=== PATIENT | female | born 1940 | race Hispanic/Latino ===

== ENCOUNTER 2021-05-25 19:30 | Emergency (ER) | payer MEDICARE, OTHER ==
[~2021-05-25] VITALS: Ht 165.1 cm; Wt 56.2 kg
[2021-05-25] MEDS ORDERED: LIDOCAINE HCL MPF 1% 5ML VIAL ONE (21:28)
[2021-05-25] MEDS ORDERED: CEPHALEXIN 500 MG CAPSULE PO ONE (21:30)
[2021-05-25] MEDS ORDERED: TETANUS/DIPHTHERIA TOXOID [ADULT] 0.5 ML VIAL IM ONE (21:30)
[2021-05-25] MEDS ORDERED: ONDANSETRON ODT 4MG TAB SL ONE (21:30)
[2021-05-25] MEDS ORDERED: HYDROCODONE/ACETAMINOPHEN 5/325 MG TAB PO ONE (21:30)
[2021-05-25] MEDS ORDERED: LIDOCAINE HCL 1% 20 ML VIAL INJ ONE (21:30)
[2021-05-25] MEDS ORDERED: NEOMY SULF/BACITRA/POLYMYXIN B 1 EACH PACKET TP ONE ×2 (22:56→23:00)
[2021-05-25] MEDS ORDERED: ONDA4TAB10 PO (22:59)
[2021-05-25] MEDS ORDERED: CEPH250C2 PO (22:59)
[2021-05-25 23:05] VITALS: BP 160/71
== END 2021-05-25 23:21 | disposition home or self-care (01) ==
LOC: EDH 19:30
DX: S02.2XXA Fracture of nasal bones, initial encounter for closed fracture (principal); S01.21XA Laceration without foreign body of nose, initial encounter; S80.01XA Contusion of right knee, initial encounter; S60.221A Contusion of right hand, initial encounter; E11.9 Type 2 diabetes mellitus without complications; E78.00 Pure hypercholesterolemia, unspecified; W18.39XA Other fall on same level, initial encounter; Y93.89 Activity, other specified; Y92.89 Other specified places as the place of occurrence of the external cause; Y99.8 Other external cause status
CPT/HCPCS: 12013; 70450; 70486; 72125; 90471; 90714; 99284; J3490

== ENCOUNTER → 2023-04-25 | Outpatient (CLI) | payer MEDICARE ==
[~2023-04-25] MED LIST: CEPH250C2 PO; ONDA4TAB10 PO
== END | disposition home or self-care (01) ==
LOC: RAH 13:50
PROVIDERS: ATTEND Family Medicine
DX: I08.2 Rheumatic disorders of both aortic and tricuspid valves (principal); R01.1 Cardiac murmur, unspecified
CPT/HCPCS: 93306

== ENCOUNTER 2024-03-17 16:27 | Inpatient (IN) | payer MEDICARE ==
[~2024-03-17] VITALS: Ht 165.1 cm; Wt 48.0 kg
[~2024-03-17 16:27] MED LIST changes: +ONDA-243 PO; -ONDA4TAB10 PO
--- NOTE | 2024-03-17 16:48 | EKG ---
[facility] Test Date: 2024-03-17 Test Time: 16:41:16 Pat Name: BRAVO CARR Department: ED Room: Gender: F Crew Trainer: [id number] : [id number] Requested By: PAUL BATES Order Number: [id number] Reading MD: Juan Pearl Measurements Intervals [place] Rate: 93 P: 38 ME: 143 QRS: -32 QRSD: 76 T: 132 QT: 344 QTc: 429 Interpretive Statements Sinus rhythm Inferior infarct, old Anterior infarct, old Nonspecific T abnormalities, lateral leads No previous ECG available for comparison Electronically Signed On 03-17-2024 20:02:55 CHIEF LOAD DISPATCHER by Juan Pearl Please click the below link to view image of tracing.
[2024-03-17 17:02] LABS: BASOPHILS # (AUTO) 0.02 K/uL (0.00-0.20); BASOPHILS % (AUTO) 0.3 % (0.0-5.0); EOSINOPHILS # (AUTO) 0.03 K/uL (0.00-0.70); EOSINOPHILS % (AUTO) 0.5 % (0.0-8.0); HEMATOCRIT 38.1 % (36-48); IMMATURE GRANULOCYTE ABSOLUTE 0.02 K/uL (0-1); LYMPHOCYTES # (AUTO) 1.9 K/uL (1.0-4.8); MEAN CORPUSCULAR HEMOGLOBIN 35.8 pg (27.0-33.0); MEAN CORPUSCULAR HGB CONC 36.2 g/dL (32.0-36.0); MONOCYTES # (AUTO) 0.6 K/uL (0.1-1.0); MONOCYTES % (AUTO) 9.9 % (3.0-13.0); NEUTROPHILS # (AUTO) 3.5 K/uL (1.8-7.7); PLATELET COUNT (AUTO) 308 K/uL (130-400); RED BLOOD CELL COUNT(AUTO) 3.85 MIL/uL (4.00-5.50); RED CELL DISTRIBUTION WIDTH 12.1 % (11.0-15.5)
--- NOTE | 2024-03-17 17:03 | HMCIMG ---
PORTABLE CHEST RADIOGRAPH INDICATION: sepsis COMPARISON: 12/26/2009 FINDINGS: Heart size is normal. The pulmonary vascularity and annette appear normal. No abnormal pulmonary parenchymal opacity or consolidation identified. No significant pleural effusion noted. No pneumothorax detected. IMPRESSION: No radiographic evidence for any acute cardiopulmonary process.
[2024-03-17 17:36] LABS: CARBON DIOXIDE 27 mmol/L (21-32); CHLORIDE 94 mmol/L (101-111); CREATINE KINASE, TOTAL 43 U/L (21-232); CREATININE 0.9 mg/dL (0.5-1.0); GLOMERULAR FILTR. RATE CALC 63 mL/min (>90); POTASSIUM 3.9 mmol/L (3.5-5.1); SODIUM SERUM 129 mmol/L (136-145); UREA NITROGEN, BLOOD 18 mg/dL (7-18)
[2024-03-17 17:45] LABS: ADD UA MICROSCOPIC YES; APPEARANCE,URINE CLEAR (CLEAR); BILIRUBIN,URINE NEGATIVE (NEGATIVE); COLOR,URINE LIGHT-YELLOW (YELLOW); GLUCOSE, URINE (UA) >=1000 mg/dL (NEGATIVE); KETONES,URINE 10 mg/dL (NEGATIVE); LEUKOCYTE ESTERASE ,URINE 25 Leu/uL (NEGATIVE); NITRATE,URINE NEGATIVE (NEGATIVE); OCCULT BLOOD,URINE NEGATIVE (NEGATIVE); PROTEIN,URINE 30 mg/dL (NEGATIVE); UROBILINOGEN,URINE 0.2 mg/dL (0.2-1.0)
[2024-03-17 17:47] LABS: BACTERIA,URINE RARE /HPF (None Seen); MUCUS,URINE RARE LPF (None Seen); RBC,URINE 0-1 /HPF (0-1); SQUAMOUS EPITHELIAL CELL,UR FEW /HPF (0-2)
[2024-03-17 17:51] LABS: GLUCOSE,RANDOM 476 mg/dL (70-105)
--- NOTE | 2024-03-17 18:47 | ERN ---
General Chief Complaint: FOOT INJURY/PAIN Stated Complaint: SENT BY DR Mathew Seen by MD: 16:28 History of Present Illness Initial Comments 83-year-old female sent in by her PCP for evaluation of a chronic left ankle injury. She injured it about five months ago. It was not been healing, and it was now has surrounding erythema and swelling. Concern for infection. Patient denies any symptoms other than some pain to the area. PCP Kaylie Chaparro Allergies: Coded Allergies: No Known Allergies (Unverified Allergy, Unknown, 05/25/21) Home Meds Active Scripts Ondansetron (Ondansetron Odt) 4 Mg Tab.rapdis, 4 MG PO Q6HPRN, #20 TAB 0 Refills Prov:ALEXANDER BRADSHAW MD 05/25/21 Cephalexin (Keflex 250Mg Caps) 250 Mg Capsule, 250 MG PO TID for 10 Days, #30 CAP 0 Refills Prov:ALEXANDER BRADSHAW MD 05/25/21 Past Medical History Past Medical History: Diabetes-Type II, High Cholesterol Past Surgical History: None ROS Dictation CONSTITUTIONAL: No chills, no fever, no weakness, no diaphoresis, no malaise. HEAD/FACE: No signs of trauma. EENT: No eye pain, no blurred vision, no tearing, no double vision, no ear pain, no ear discharge, no nose pain, no nasal congestion, no throat pain, no throat swelling, no mouth pain. RESPIRATORY: No cough, no orthopnea, no SOB, no stridor, no wheezing. CARDIOVASCULAR: No chest pain, no edema, no palpitations, no syncope. GASTROINTESTINAL/ABDOMINAL: No abdominal pain, no constipation, no diarrhea, no nausea, no vomiting. GENITOURINARY: No abnormal discharge, no dysuria, no frequent urination, no hematuria. No complaints of pain in the genitals. MUSCULOSKELETAL: Left-sided foot infection INTEGUMENTARY: No change in color, no change in hair/nails, no dryness, no lesion, no lumps, no rash. NEUROLOGICAL/PSYCH: No anxiety, not depressed, no emotional problem, no headache, no numbness, no pre-existing deficit, no history of seizures, no tremors, no weakness. HEMATOLOGIC/LYMPHATIC: Not anemic, no history of blood clots, no apparent bleeding, no bruising, glands not swollen. All Systems Negative, Except as Noted. Physical Exam Physical Exam Dictation VITAL SIGNS: Reviewed. GENERAL APPEARANCE: Alert, oriented x3, no acute distress HEAD AND FACE: Non-traumatic. EYES: PERRL, pink conjunctivas, eyelid no trauma, anterior chamber clear. EARS: Pinnas intact and no signs of trauma or erythema. Ear canals clear and no discharge. TMs no erythema. NOSE: No discharge, no bleeding. OROPHARYNX: Mouth normal, teeth no caries, tongue pink. Pharynx clear, no erythema. Tonsils no exudates, no abscesses noted. Mucous membrane moist. NECK: Supple, non-tender, no thyromegaly, no masses, no JVD, no bruits. BREAST: Deferred. CHEST: No tenderness, no crepitus, no paradoxical movement, no retractions. LUNGS: Clear, well-ventilated, symmetric, no rales, no wheezing, no rhonchi, no stridor, good breath sounds bilaterally. HEART: Regular rate, regular rhythm, no murmur, no gallops. VASCULAR: No peripheral edema. ABDOMEN: Soft, positive bowel sounds, nondistended, no guarding, nontender, no rebound, no masses no hepatomegaly, no splenomegaly, no Sena's sign, no hernias. RECTAL: Deferred. GENITAL: Deferred. NEUROLOGICAL: Normal speech, gross motor function intact, gross sensory function intact. MUSCULOSKELETAL: Neck nontender, full range of motion, back nontender, full range of motion. EXTREMITIES: Nontender, full range of motion. SKIN: Color pink, dry, no turgor, no rash, no lacerations, no abrasions, no contusions. LYMPHATICS: Deferred. Results Laboratory and Microbiology Lab and Micro Result Laboratory Tests Test 03/17/24 16:51 03/17/24 17:28 White Blood Count 6.0 K/uL (4.8-10.8) Red Blood Count 3.85 MIL/uL (4.00-5.50) L Hemoglobin 13.8 g/dL (12.0-16.0) Hematocrit 38.1 % (36-48) Mean Corpuscular Volume 99.0 fL (79-99) Mean Corpuscular Hemoglobin 35.8 pg (27.0-33.0) H Mean Corpuscular Hemoglobin Concent 36.2 g/dL (32.0-36.0) H Red Cell Distribution Width 12.1 % (11.0-15.5) Platelet Count 308 K/uL (130-400) Mean Platelet Volume 9.2 fL (7.5-10.5) Immature Granulocyte % (Auto) 0.3 % (0-1) Neutrophils (%) (Auto) 58.0 % (40.0-77.0) Lymphocytes (%) (Auto) 31.0 % (21.0-51.0) Monocytes (%) (Auto) 9.9 % (3.0-13.0) Eosinophils (%) (Auto) 0.5 % (0.0-8.0) Basophils (%) (Auto) 0.3 % (0.0-5.0) Neutrophils # (Auto) 3.5 K/uL (1.8-7.7) Lymphocytes # (Auto) 1.9 K/uL (1.0-4.8) Monocytes # (Auto) 0.6 K/uL (0.1-1.0) Eosinophils # (Auto) 0.03 K/uL (0.00-0.70) Basophils # (Auto) 0.02 K/uL (0.00-0.20) Absolute Immature Granulocyte (auto 0.02 K/uL (0-1) Nucleated Red Blood Cells 0.0 % (0.0-0.19) Red Blood Cell Morphology ANISO 1+ Sodium Level 129 mmol/L (136-145) L Potassium Level 3.9 mmol/L (3.5-5.1) Chloride Level 94 mmol/L (101-111) L Carbon Dioxide Level 27 mmol/L (21-32) Blood Urea Nitrogen 18 mg/dL (7-18) Creatinine 0.9 mg/dL (0.5-1.0) Glomerular Filtration Rate Calc 63 mL/min (>90) Random Glucose 476 mg/dL (70-105) *H Lactic Acid Level 1.7 mmol/L (0.8-2.5) Total Calcium 8.9 mg/dL (8.5-10.1) Total Creatine Kinase 43 U/L (21-232) Troponin I High Sensitivity 16 ng/L (4-50) C-Reactive Protein, Quantitative < 0.50 mg/L (0.5-3.0) L Urine Color LIGHT-YELLOW (YELLOW) Urine Appearance CLEAR (CLEAR) Urine pH 5.0 (5.0-8.0) Urine Specific [place] 1.036 (1.001-1.031) Urine Protein 30 mg/dL (NEGATIVE) H Urine Glucose (UA) >=1000 mg/dL (NEGATIVE) H Urine Ketones 10 mg/dL (NEGATIVE) H Urine Occult Blood NEGATIVE (NEGATIVE) Urine Nitrate NEGATIVE (NEGATIVE) Urine Bilirubin NEGATIVE mg/dL (NEGATIVE) Urine Urobilinogen 0.2 mg/dL (0.2-1.0) Urine Leukocyte Esterase 25 Lorri/uL (NEGATIVE) H Urine RBC 0-1 /HPF (0-1) Urine WBC 2-5 /HPF (0-1) H Urine Squamous Epithelial Cells FEW /HPF (0-2) Urine Bacteria RARE /HPF (None Seen) MDM CC: Possible left ankle infection Historian: Patient Comorbidities: Advanced age, diabetes, high cholesterol Vital signs: Stable, remained stable in the ER. labs show no leukocytosis no anemia. Chemistry shows mildly low hyponatremia and hypochlorite. The glucose is 476. Lactic acid stable. CRP is unremarkable. UA shows high specific gravity, high glucose otherwise unremarkable. CXR (independently interpreted by me ): No focal infiltrates cardiomegaly or abnormalities. Left foot x-ray (independently interpreted by me ): No acuteosseous abnormalities. Old hardware in the 1st digit with no new acute fractures. Clinically there is a concern for cellulitis. She also has hyperglycemia dehydration. She was given 1 L of lactated Ringer's, vancomycin and Rocephin, and 5 units of insulin IV. We will admit to the hospitalist for further treatment and evaluation. Consultation: Hospitalist for admission ED Course Orders Procedure Category Date Status Time Cardiac Panel LAB 03/17/24 Complete 16:39 Cbc With Differential LAB 03/17/24 Complete 16:39 Basic Metabolic Panel LAB 03/17/24 Complete 16:39 Urinalysis Profile LAB 03/17/24 Complete 16:39 Lactic Acid LAB 03/17/24 Complete 16:39 Blood Cult DARNELL 03/17/24 In Process 16:39 Crp Quantitative LAB 03/17/24 Complete 16:39 Troponin I High LAB 03/17/24 Complete Sensitivity 16:39 12 Lead Ekg Tracing- EKG 03/17/24 Complete Technical 16:39 Chest 1vw RAD 03/17/24 Resulted 16:39 Foot Comp 3+Vws Lt RAD 03/17/24 Taken 17:11 Vancomycin 1g/250ml PHA 03/17/24 Logged Kit (Vancomycin 1g/2 19:00 Ceftriaxone 1g Vial PHA 03/17/24 Logged (Rocephine 1g Inj) 19:00 Insulin Regular, PHA 03/17/24 Logged Human 3ml (Humulin R 19:00 Lactated Ringers PHA 03/17/24 Logged 1000ml (Lactated 19:00 Current Medications Medications (Trade) Dose Ordered Sig/Bebeto Route PRN Reason Start Time Stop Time Status Last Admin Dose Admin Ceftriaxone Sodium (ROCEphine 1G INJ) 1 gm ONCE ONCE IVPB 03/17/24 19:00 03/17/24 19:01 UNV Insulin Human Regular (humuLIN R 100 UNIT/ML 3ML) 5 unit ONCE ONCE IV 03/17/24 19:00 03/17/24 19:01 UNV Lactated Ringer's 1,000 ml @ 0 mls/hr ONCE ONCE IV 03/17/24 19:00 03/17/24 19:01 UNV Vancomycin HCl (Vancomycin 1g/ 250ml Kit) 1 gm ONCE ONCE IV 03/17/24 19:00 03/17/24 19:01 UNV Vital Signs Date Time Temp Pulse Resp B/P (MAP) Pulse Ox O2 Delivery O2 Flow Rate FiO2 03/17/24 17:15 97.2 101 20 163/92 97 Room Air* 0 21 03/17/24 16:56 97.9 101 20 163/92 98 0 DX & DISP Disposition: Discharge Departure Impression: Primary Impression: Left leg cellulitis Additional Impressions: Dehydration, Hyperglycemia Condition: Stable Referrals: KAYLIE CHAPARRO MD (PCP) PAUL BATES DO Mar 17, 2024 18:47
--- NOTE | 2024-03-17 19:01 | HMCIMG ---
LEFT FOOT RADIOGRAPHS - 3 VIEWS INDICATION: Pain COMPARISON: None FINDINGS: AP, lateral, and oblique views. No fracture or subluxation identified. No evidence for periosteal reaction, cortical erosive changes, or any abnormal subperiosteal bone resorption. Metallic screw within the distal first metatarsal bone and cerclage wires at the base of the first proximal phalanx. Midfoot alignment is well maintained. Fourth and fifth distal interphalangeal joint ankylosis. Subcentimeter plantar calcaneal spur. IMPRESSION: No evidence for fracture or osteomyelitis.
[2024-03-17] MEDS: cefTRIAXone 1G VIAL IVPB ONE (19:04)
[2024-03-17] MEDS: VANCOMYCIN KIT 1 GM/250 ML IV.KIT IV ONE (19:50)
[2024-03-17] MEDS: INSULIN humuLIN R 100 UNIT/ML 3ML IV ONE (19:51)
[2024-03-17] MEDS: LACTATED RINGERS 1000ML 1,000 ML IV ONE (19:51)
[2024-03-17 20:00] VITALS: BP 139/73; PULSE 84; RESP 18; TEMP 98.4; O2SAT 97
[2024-03-17] MEDS ORDERED: acetaMINOPHEN 325 MG TAB PO PRN (20:30)
[2024-03-17] MEDS ORDERED: ondanSETRON 4MG INJ IV PRN (20:30)
[2024-03-17] MEDS ORDERED: DEXTROSE 50%-WATER 50 ML DISP.SYRIN IV PRN (20:30)
[2024-03-17] MEDS ORDERED: cefTRIAXone 1G VIAL 1 GM in 0.9%NACL 50ML 50 ML IV SCH (20:30)
[2024-03-17] MEDS ORDERED: PoTASSium chloRIDE 10MEQ/100ML 100 ML IV PRN (20:30)
[2024-03-17] MEDS ORDERED: PoTASSium chl 10% ELIXIR 20MEQ 20 MEQ/15 ML UDCUP PO PRN (20:30)
[2024-03-17] MEDS ORDERED: GLUCAGON 1MG KIT 1 MG ML IM PRN (20:30)
--- NOTE | 2024-03-17 20:41 | HP ---
[facility] Date of Service: Mar 17, 2024 Time of Service: 20:15 PCP : Krysta Hook HISTORY OF PRESENT ILLNESS: This is an 83-year-old female with past medical history of diabetes, hyperlipidemia, severe aortic stenosis, peripheral arterial disease and dementia with agitation who presents to the ED for evaluation of chronic left ankle injury.Patient reports she fell 5 months ago and injured her left foot and ever since then ,wound was not healing and now it becomes red and swollen and she is concern for an infection and patient is reportedly being sent by her PCP. Seen and examined patient in the ER ,awake,alert and coherent,appears comfortable.Patient denies fever,chills,nausea,vomiting,chest pain ,palpitation and shortness of breath. Latest vital signs temperature 97.9, heart rate 101, blood pressure 154/65 saturation 98% on room air. Labs: CBC is unremarkable. Sodium 129, chloride 94, glucose 476, CRP less than 0.50 troponin 16. Urinalysis positive with esterase, glucose, protein, urine W BC 2-5. Left foot x-ray result revealed no evidence for fracture or osteomyelitis. Chest x-ray result is unremarkable. While in the ER patient received 1 L LR bolus, 5 units of insulin IV, Rocephin 1 g IV and vancomycin 1 g IV. We will admit patient for further medical management. REVIEW OF SYSTEMS CONSTITUTIONAL: Denies fevers, chills, or night sweats. No unintentional weight loss reported. NEUROLOGICAL: Denies headache, amaurosis fugax, motor weakness, sensory deficit, vertigo/spinning sensation, gait abnormalities, or tremors. ENT: No hearing loss, otalgia, otorrhea, rhinitis, rhinorrhea, hoarseness, or sore throat. CARDIOVASCULAR: Denies any exertional angina, dyspnea on exertion, orthopnea, paroxysmal nocturnal dyspnea, palpitations, life-threatening arrhythmias, claudication. PULMONARY: Denies any shortness of breath, cough, phlegm/sputum, hemoptysis, p leuritic chest pain. SLEEP: Denies morning headaches, daytime somnolence or napping. Denies difficulty falling asleep, staying asleep, waking from sleep. Denies knowledge of snoring. GASTROINTESTINAL: Denies any type of dysphagia to either liquids or solids. Denies nausea, vomiting, pyrosis, early satiety, abdominal pain, diarrhea, constipation, or changes in stool consistency or caliber. Denies coffee-ground emesis, hematemesis, hematochezia, or melanotic stools. GENITOURINARY: Denies frequency, urgency, nocturia, hematuria or incontinence (Storage/Irritative symptoms.) Low urinary stream, straining to void, urinary intermittency or hesitancy, splitting of the voiding stream, terminal dribbling. ENDOCRINOLOGIC: Denies polyuria, polydipsia, polyphagia or heat/cold intoler ances. HEMATOLOGIC: Denies thrombophilia/previous clots, or coagulopathy/bleeding disorders. ONCOLOGIC: Denies personal history of malignancy. DERMATOLOGIC: Denies rashes or pruritus. PSYCHIATRIC: Denies any suicidal or homicidal ideation. Denies hallucinations. PAST MEDICAL HISTORY: [ diabetes, hyperlipidemia, severe aortic stenosis, peripheral arterial disease and dementia with agitation ] PAST SURGICAL HISTORY: [Patient denies ] PAST SOCIAL HISTORY: [ Patient denies alcohol tobacco and recreational drug use. Patient lives with .] FAMILY HISTORY: [Noncontributory ] Coded Allergies: No Known Allergies (Unverified Allergy, Unknown, 05/25/21) PHYSICAL EXAM GENERAL APPEARANCE: The patient is awake, alert, and oriented, in no acute cardiopulmonary distress. NEUROLOGICAL: Cranial nerves II-XII grossly intact. Motor is 5/5 in bilateral upper and lower extremities proximal to distal. No sensory deficits. HEENT: Face is symmetric. Pupils are equal and reactive. Extraocular movements are intact. NECK: Supple. No JVD. No thyromegaly. No submental, submandibular, pre- /postauricular, occipital or supraclavicular lymphadenopathy. CHEST: Normal chest expansion. No Telemetry. LUNGS: Absence of any rales, rhonchi or any wheezing. CARDIOVASCULAR: Regular. S1 and S2 normal. No appreciable rubs, murmurs or gallops. ABDOMEN: Soft, nontender, and nondistended. There is no rebound, voluntary guarding, or rigidity. : Deferred. No Shook. EXTREMITIES: Swollen left foot with ulcer located at outer aspect of the ankle SKIN: erythema and some dark discoloration of chronic left foot ulcer Vital Sign (Last 24 Hours) 03/17/24 18:56 Temp 97.9 Pulse 101 Resp 20 B/P (MAP) 154/65 Pulse Ox 98 O2 Delivery Room Air* O2 Flow Rate 0 FiO2 21 LABS: Laboratory: Test 03/17/24 19:47 03/17/24 17:28 03/17/24 16:51 Range/Units Whole Blood Glucose 454 *H 70-110 MG/DL Bedside Glucose Comment Notified Nurse Urine Color LIGHT-YELLOW YELLOW Urine Appearance CLEAR CLEAR Urine pH 5.0 5.0-8.0 Urine Specific [place] 1.036 H 1.001-1.031 Urine Protein 30 H NEGATIVE mg/dL Urine Glucose (UA) >=1000 H NEGATIVE mg/dL Urine Ketones 10 H NEGATIVE mg/dL Urine Occult Blood NEGATIVE NEGATIVE Urine Nitrate NEGATIVE NEGATIVE Urine Bilirubin NEGATIVE NEGATIVE mg/dL Urine Urobilinogen 0.2 0.2-1.0 mg/dL Urine Leukocyte Esterase 25 H NEGATIVE Lorri/uL Urine RBC 0-1 0-1 /HPF Urine WBC 2-5 H 0-1 /HPF Urine Squamous Epithelial Cells FEW 0-2 /HPF Urine Bacteria RARE None Seen /HPF White Blood Count 6.0 4.8-10.8 K/uL Red Blood Count 3.85 L 4.00-5.50 MIL/uL Hemoglobin 13.8 12.0-16.0 g/dL Hematocrit 38.1 36-48 % Mean Corpuscular Volume 99.0 79-99 fL Mean Corpuscular Hemoglobin 35.8 H 27.0-33.0 pg Mean Corpuscular Hemoglobin Concent 36.2 H 32.0-36.0 g/dL Red Cell Distribution Width 12.1 11.0-15.5 % Platelet Count 308 130-400 K/uL Mean Platelet Volume 9.2 7.5-10.5 fL Immature Granulocyte % (Auto) 0.3 0-1 % Neutrophils (%) (Auto) 58.0 40.0-77.0 % Lymphocytes (%) (Auto) 31.0 21.0-51.0 % Monocytes (%) (Auto) 9.9 3.0-13.0 % Eosinophils (%) (Auto) 0.5 0.0-8.0 % Basophils (%) (Auto) 0.3 0.0-5.0 % Neutrophils # (Auto) 3.5 1.8-7.7 K/uL Lymphocytes # (Auto) 1.9 1.0-4.8 K/uL Monocytes # (Auto) 0.6 0.1-1.0 K/uL Eosinophils # (Auto) 0.03 0.00-0.70 K/uL Basophils # (Auto) 0.02 0.00-0.20 K/uL Absolute Immature Granulocyte (auto 0.02 0-1 K/uL Nucleated Red Blood Cells 0.0 0.0-0.19 % Red Blood Cell Morphology ANISO 1+ Sodium Level 129 L 136-145 mmol/L Potassium Level 3.9 3.5-5.1 mmol/L Chloride Level 94 L 101-111 mmol/L Carbon Dioxide Level 27 21-32 mmol/L Blood Urea Nitrogen 18 7-18 mg/dL Creatinine 0.9 0.5-1.0 mg/dL Glomerular Filtration Rate Calc 63 >90 mL/min Random Glucose 476 *H 70-105 mg/dL Lactic Acid Level 1.7 0.8-2.5 mmol/L Total Calcium 8.9 8.5-10.1 mg/dL Total Creatine Kinase 43 21-232 U/L Troponin I High Sensitivity 16 4-50 ng/L C-Reactive Protein, Quantitative < 0.50 L 0.5-3.0 mg/L DIAGNOSTICS / RADIOLOGY: [ ] ASSESSMENT: Left foot ulcer with cellulitis POA Hyperglycemia due to uncontrolled diabetes POA Hyperlipidemia POA Pseudohyponatremia due to hyperglycemia POA Peripheral arterial disease POA History of severe aortic stenosis POA History of Dementia with agitation POA PLAN: We will admit patient in medical surgical floor We will start on consistent carb and heart healthy diet We will continue patient on Rocephin and vancomycin for broad-spectrum coverage We will start patient on Lovenox 30 mg subQ daily for DVT prophylaxis We will start on Famotidine 20 mg p.o. bid for GI prophylaxis We will replace electrolytes as needed per protocol We will start on insulin sliding scale AC & HS with hypoglycemia protocol We will add prn medication for fever,pain,cough and nausea We will reconcile home meds once medlist available We will seek podiatry consultation We will request labs in am Further orders to follow depending on above results Case discussed with attending physician and came up with above treatment and plan of care. ADVANCED CARE PLANNING 1. Which of the following were discussed? Hospice Care - No Therapeutic options - Yes Advance Directives - No Other discussions - 2. Discussed with who? Patient 3. Voluntary nature of this service was explained to the patient? Yes 4. Amount of time spent - __20 5. Reviewed by Physician? (if this service was performed by NPP) Yes Patient seen and examined by me. Agree with note by TILE HELPER SEE ADDITIONAL ORDERS PER CHART DISCUSSED WITH NURSING STAFF PITER CAREY TIME STUDY TECHNICIAN Mar 17, 2024 20:40
[2024-03-17] MEDS: INSULIN humuLIN R 100 UNIT/ML 3ML SQ SCH (20:42)
[2024-03-17] MEDS: VANCOMYCIN 1G/250ML KIT 250 ML IV ONE (20:42)
[2024-03-17] MEDS ORDERED: VANCOMYCIN PROTOCOL PER PHARMACY IV SCH (21:00)
[2024-03-17] MEDS: FAMOTIDINE 20MG TAB PO SCH (21:04)
[2024-03-17 21:40] VITALS: BP 174/90; PULSE 82; RESP 18; TEMP 98.2
[2024-03-17] MEDS: acetaMINOPHEN 325 MG TAB PO PRN (23:28)
[2024-03-18] VITALS: BP 126/61; PULSE 68; RESP 18; TEMP 98.6
[2024-03-18 04:00] VITALS: BP 167/72; PULSE 74; RESP 18; TEMP 98.5
[2024-03-18 05:51] LABS: BASOPHILS # (AUTO) 0.02 K/uL (0.00-0.20); BASOPHILS % (AUTO) 0.4 % (0.0-5.0); EOSINOPHILS # (AUTO) 0.05 K/uL (0.00-0.70); HEMATOCRIT 31.9 % (36-48); IMMATURE GRANULOCYTE ABSOLUTE 0.01 K/uL (0-1); LYMPHOCYTES # (AUTO) 1.8 K/uL (1.0-4.8); LYMPHOCYTES % (AUTO) 34.5 % (21.0-51.0); MEAN CORPUSCULAR HEMOGLOBIN 35.5 pg (27.0-33.0); MEAN CORPUSCULAR HGB CONC 35.4 g/dL (32.0-36.0); MEAN CORPUSCULAR VOLUME 100.3 fL (79-99); MONOCYTES # (AUTO) 0.5 K/uL (0.1-1.0); MONOCYTES % (AUTO) 10.3 % (3.0-13.0); NEUTROPHILS # (AUTO) 2.7 K/uL (1.8-7.7); NEUTROPHILS % (AUTO) 53.6 % (40.0-77.0); PLATELET COUNT (AUTO) 224 K/uL (130-400); RED BLOOD CELL COUNT(AUTO) 3.18 MIL/uL (4.00-5.50); RED CELL DISTRIBUTION WIDTH 12.1 % (11.0-15.5); WHITE BLOOD COUNT (AUTO) 5.1 K/uL (4.8-10.8)
[2024-03-18 06:04] LABS: ALBUMIN 2.6 g/dL (3.5-5.0); BILIRUBIN,TOTAL 0.3 mg/dL (0.2-1.0); CREATININE 0.8 mg/dL (0.5-1.0); MAGNESIUM 1.3 mg/dL (1.80-2.40); POTASSIUM 3.4 mmol/L (3.5-5.1); TOTAL PROTEIN, SERUM 5.9 g/dL (6.0-8.3)
[2024-03-18] MEDS: PoTASSium chloRIDE 20MEQ ER 20 MEQ ERTAB PO PRN (06:42)
[2024-03-18 07:04] LABS: ERYTHROCYTE SEDIMENTATION RATE 55 MM/HR (0-30)
[2024-03-18 08:00] VITALS: BP_SYST 140; BP_SYST 184; BP_DIAS 109; BP_DIAS 57; PULSE 71; PULSE 74; RESP 18; TEMP 98; TEMP 98.1; O2SAT 95
[2024-03-18] MEDS: ENOXAPARIN SODIUM 30 MG/0.3 ML SQ SCH (08:11)
[2024-03-18] MEDS ORDERED: hydrALAZine 20MG/ML VIAL IV PRN (11:30)
[2024-03-18] MEDS ORDERED: ATOR40TA71 PO (11:38)
[2024-03-18] MEDS ORDERED: PIOG15TA66 PO (11:38)
[2024-03-18] MEDS ORDERED: REPA1TAB5 PO (11:38)
[2024-03-18] MEDS ORDERED: LOSA25TA41 PO (11:38)
[2024-03-18] MEDS ORDERED: MEMA5TAB16 PO (11:38)
[2024-03-18] MEDS ORDERED: GLIP10TA16 PO (11:38)
[2024-03-18] MEDS ORDERED: METF-446 PO (11:38)
--- NOTE | 2024-03-18 11:48 | PN ---
[facility] PROGRESS NOTE Date of Service: Mar 18, 2024 Time of Service: 11:32 SUBJECTIVE: [83-year-old female admitted due to nonhealing left ankle wound. Apparently patient had a fall at home and wound slowly healing. She presented to the emergency department due to increased swelling and redness on the left ankle wound. Podiatry has been consulted. Patient is currently on IV antibiotics on vancomycin and ceftriaxone. He is currently afebrile. Blood pressure improving. I reviewed his home medication and resumed [id number] mg p.o. daily.] REVIEW OF SYSTEMS CONSTITUTIONAL: Denies fevers, chills, or night sweats. No unintentional weight loss reported. NEUROLOGICAL: Denies headache, amaurosis fugax, motor weakness, sensory deficit, vertigo/spinning sensation, gait abnormalities, or tremors. ENT: No hearing loss, otalgia, otorrhea, rhinitis, rhinorrhea, hoarseness, or sore throat. CARDIOVASCULAR: Denies any exertional angina, dyspnea on exertion, orthopnea, paroxysmal nocturnal dyspnea, palpitations, life-threatening arrhythmias, claudication. PULMONARY: Denies any shortness of breath, cough, phlegm/sputum, hemoptysis, pleuritic chest pain. SLEEP: Denies morning headaches, daytime somnolence or napping. Denies diffi culty falling asleep, staying asleep, waking from sleep. Denies knowledge of snoring. GASTROINTESTINAL: Denies any type of dysphagia to either liquids or solids. Denies nausea, vomiting, pyrosis, early satiety, abdominal pain, diarrhea, constipation, or changes in stool consistency or caliber. Denies coffee-ground emesis, hematemesis, hematochezia, or melanotic stools. GENITOURINARY: Denies frequency, urgency, nocturia, hematuria or incontinence (Storage/Irritative symptoms.) Low urinary stream, straining to void, urinary intermittency or hesitancy, splitting of the voiding stream, terminal dribbling. ENDOCRINOLOGIC: Denies polyuria, polydipsia, polyphagia or heat/cold int olerances. HEMATOLOGIC: Denies thrombophilia/previous clots, or coagulopathy/bleeding disorders. ONCOLOGIC: Denies personal history of malignancy. DERMATOLOGIC: Denies rashes or pruritus. PSYCHIATRIC: Denies any suicidal or homicidal ideation. Denies hallucinations. PHYSICAL EXAM GENERAL APPEARANCE: The patient is awake, alert, and oriented, in no acute cardiopulmonary distress. NEUROLOGICAL: Cranial nerves II-XII grossly intact. Motor is 5/5 in bilateral upper and lower extremities proximal to distal. No sensory deficits. HEENT: Face is symmetric. Pupils are equal and reactive. Extraocular movements are intact. NECK: Supple. No JVD. No thyromegaly. No submental, submandibular, pre- /postauricular, occipital or supraclavicular lymphadenopathy. CHEST: Normal chest expansion. No Telemetry. LUNGS: Absence of any rales, rhonchi or any wheezing. CARDIOVASCULAR: Regular. S1 and S2 normal. No appreciable rubs, murmurs or gallops. ABDOMEN: Soft, nontender, and nondistended. There is no rebound, voluntary guarding, or rigidity. : Deferred. No Shook. EXTREMITIES: Swollen left foot with ulcer located at outer aspect of the ankle SKIN: erythema and some dark discoloration of chronic left foot ulcer Vital Signs (last 8hr) Date Time Temp Pulse Resp B/P (MAP) Pulse Ox O2 Delivery O2 Flow Rate FiO2 03/18/24 08:00 95 Room Air* 0 21 03/18/24 08:00 98.1 71 18 184/109 98 Room Air 21 03/18/24 08:00 98.1 74 18 140/57 95 Room Air 21 03/18/24 04:00 98.4 74 18 167/72 95 Room Air LABS: Laboratory: Test 03/18/24 05:28 03/18/24 05:15 03/17/24 19:47 03/17/24 17:28 Range/Units White Blood Count 5.1 4.8-10.8 K/uL Red Blood Count 3.18 L 4.00-5.50 MIL/uL Hemoglobin 11.3 L 12.0-16.0 g/dL Hematocrit 31.9 L 36-48 % Mean Corpuscular Volume 100.3 H 79-99 fL Mean Corpuscular Hemoglobin 35.5 H 27.0-33.0 pg Mean Corpuscular Hemoglobin Concent 35.4 32.0-36.0 g/dL Red Cell Distribution Width 12.1 11.0-15.5 % Platelet Count 224 # 130-400 K/uL Mean Platelet Volume 9.2 7.5-10.5 fL Immature Granulocyte % (Auto) 0.2 0-1 % Neutrophils (%) (Auto) 53.6 40.0-77.0 % Lymphocytes (%) (Auto) 34.5 21.0-51.0 % Monocytes (%) (Auto) 10.3 3.0-13.0 % Eosinophils (%) (Auto) 1.0 0.0-8.0 % Basophils (%) (Auto) 0.4 0.0-5.0 % Neutrophils # (Auto) 2.7 1.8-7.7 K/uL Lymphocytes # (Auto) 1.8 1.0-4.8 K/uL Monocytes # (Auto) 0.5 0.1-1.0 K/uL Eosinophils # (Auto) 0.05 0.00-0.70 K/uL Basophils # (Auto) 0.02 0.00-0.20 K/uL Absolute Immature Granulocyte (auto 0.01 0-1 K/uL Nucleated Red Blood Cells 0.0 0.0-0.19 % Erythrocyte Sedimentation Rate 55 H 0-30 MM/HR Sodium Level 131 L 136-145 mmol/L Potassium Level 3.4 L 3.5-5.1 mmol/L Chloride Level 98 L 101-111 mmol/L Carbon Dioxide Level 27 21-32 mmol/L Blood Urea Nitrogen 16 7-18 mg/dL Creatinine 0.8 0.5-1.0 mg/dL Glomerular Filtration Rate Calc 72 >90 mL/min Random Glucose 394 H 70-105 mg/dL Total Calcium 8.1 L 8.5-10.1 mg/dL Magnesium Level 1.30 L 1.80-2.40 mg/dL Total Bilirubin 0.3 0.2-1.0 mg/dL Aspartate Amino Transf (AST/SGOT) 4 L 10-37 U/L Alanine Aminotransferase (ALT/SGPT) 9 L 12-78 U/L Alkaline Phosphatase 68 50-136 U/L Total Protein 5.9 L 6.0-8.3 g/dL Albumin 2.6 L 3.5-5.0 g/dL Triglycerides Level 882 H 30-200 mg/dL Cholesterol Level 183 <200 mg/dL LDL Cholesterol 35 0-99 mg/dL HDL Cholesterol 34 L 35-85 mg/dL Whole Blood Glucose 361 H 70-110 MG/DL Bedside Glucose Comment Notified Nurse Urine Color LIGHT-YELLOW YELLOW Urine Appearance CLEAR CLEAR Urine pH 5.0 5.0-8.0 Urine Specific [place] 1.036 H 1.001-1.031 Urine Protein 30 H NEGATIVE mg/dL Urine Glucose (UA) >=1000 H NEGATIVE mg/dL Urine Ketones 10 H NEGATIVE mg/dL Urine Occult Blood NEGATIVE NEGATIVE Urine Nitrate NEGATIVE NEGATIVE Urine Bilirubin NEGATIVE NEGATIVE mg/dL Urine Urobilinogen 0.2 0.2-1.0 mg/dL Urine Leukocyte Esterase 25 H NEGATIVE Lorri/uL Urine RBC 0-1 0-1 /HPF Urine WBC 2-5 H 0-1 /HPF Urine Squamous Epithelial Cells FEW 0-2 /HPF Urine Bacteria RARE None Seen /HPF Test 03/17/24 16:51 Range/Units Red Blood Cell Morphology ANISO 1+ Lactic Acid Level 1.7 0.8-2.5 mmol/L Total Creatine Kinase 43 21-232 U/L Troponin I High Sensitivity 16 4-50 ng/L C-Reactive Protein, Quantitative < 0.50 L 0.5-3.0 mg/L Current Medications Medications (Trade) Dose Ordered Sig/Bebeto Route PRN Reason Start Time Stop Time Status Last Admin Dose Admin Acetaminophen (TYLenol 325MG TAB) 650 mg Q4H PRN PO MILD PAIN (1-3) 03/17/24 20:30 04/16/24 20:29 03/18/24 04:25 650 MG Acetaminophen (TYLenol 325MG TAB) 650 mg Q6H PRN PO TEMPERATURE GREATER THAN 101.5 03/17/24 20:30 04/16/24 20:29 Amlodipine Besylate (NorvASC 5MG TAB) 5 mg DAILY PO 03/18/24 11:30 04/17/24 11:29 Ceftriaxone Sodium 1 gm/ Sodium Chloride 50 ml @ 100 mls/hr Q24H IV 03/17/24 20:30 03/17/24 20:31 DC Ceftriaxone Sodium (ROCEphine 1G INJ) 1 gm Q24H IVPB 03/18/24 20:30 03/28/24 20:29 Dextrose (D50w) 50 ml AD PRN IV HYPOGLYCEMIA PROTOCOL 03/17/24 20:30 04/16/24 20:29 Enoxaparin Sodium (Lovenox) 30 mg DAILY SQ 03/18/24 09:00 04/17/24 08:59 03/18/24 08:11 30 MG Famotidine (Pepcid 20mg Tab) 20 mg Q24H PO 03/17/24 21:00 04/16/24 20:59 03/17/24 21:04 20 MG Glucagon (Glucagon 1mg Kit) 1 mg AD PRN IM HYPOGLYCEMIA PROTOCOL 03/17/24 20:30 04/16/24 20:29 Hydralazine HCl (APRESOLine 20MG INJ) 5 mg Q6H PRN IV ADMINISTER FOR SBP > 160 03/18/24 11:30 04/17/24 11:29 Insulin Human Regular (humuLIN R 100 UNIT/ML 3ML) INSULIN SLIDING SCAL... ACHS SQ 03/17/24 21:00 04/16/24 20:59 03/18/24 05:41 8 UNIT Magnesium Sulfate 50 ml @ 0 mls/hr PROTOCOL PRN IV OTHER [SEE ORDER COMMENTS] 03/17/24 20:30 04/16/24 20:29 Ondansetron HCl (zoFRAN 4MG INJ) 4 mg Q6H PRN IV NAUSEA/VOMITING 03/17/24 20:30 04/16/24 20:29 Potassium Chloride 100 ml @ 100 mls/hr AD PRN IV POTASSIUM PROTOCOL 03/17/24 20:30 04/16/24 20:29 Potassium Chloride (K-Dur 10meq Sr Tab) 10 meq AD PRN PO POTASSIUM PROTOCOL 03/18/24 11:30 04/16/24 20:29 Potassium Chloride (K-Dur/Klor-Con 20meq) 10 meq AD PRN PO POTASSIUM PROTOCOL 03/17/24 20:30 03/18/24 11:17 DC 03/18/24 06:42 10 MEQ Potassium Chloride (KCl 10% Elixir 20meq/15ml) 10 meq AD PRN PO POTASSIUM PROTOCOL 03/17/24 20:30 04/16/24 20:29 Vancomycin HCl 250 ml @ 125 mls/hr Q24H IV 03/18/24 21:00 03/28/24 20:59 Vancomycin HCl (Vancomycin Protocol) 1 each AD IV 03/17/24 21:00 03/31/24 20:59 DIAGNOSTICS / RADIOLOGY: [ ] ASSESSMENT: Hypokalemia, POA Hyponatremia, POA Hypomagnesemia, POA Moderate protein caloric malnutrition Left foot ulcer with cellulitis POA Hyperglycemia due to uncontrolled diabetes POA Hyperlipidemia POA Pseudohyponatremia due to hyperglycemia POA Peripheral arterial disease POA History of severe aortic stenosis POA History of Dementia with agitation POA PLAN: Continue admission to the medical-surgical floor Continue with consistent carb and heart healthy diet Continue with IV antibiotics with Rocephin and vancomycin Dr. Hernandez has been consulted to evaluate her left ankle wound Continue with supportive care: GI and DVT prophylaxis with famotidine and Lovenox We will replete her electrolytes as necessary We will repeat labs tomorrow Home medication has been reviewed and reconciled Continue with blood sugar management with a.c. and HS glucometer, we will start patient on Lantus 10 units at HS We will request for hemoglobin A1c Patient was very elevated triglycerides we will order stat amylase and lipase to rule out pancreatitis Case discussed with attending physician and came up with above treatment and plan of care. Code Status: Full Resuscitation Disposition: TBD Prognosis: Guarded NEURO: Minimize central acting medications as possible. Fall Precautions. Well lighted room through the day and minimize interruptions through the night to prevent acute delirium. PULMONARY: Supplemental 02 as needed BiPAP as necessary, for respiratory distress Titrate Fio2 to keep Spo2 > or = 90% DuoNebs and CPT as needed IS hourly while awake for pulmonary hygiene Out of bed to chair as tolerated VAP Bundle Maintain aspiration precautions at all times CARDIOVASCULAR: Follow hemodynamics. Vital signs per facility protocol GI & NUTRITION: Continue nutritional support Aspirations precautions Prokinetic agents and laxatives as needed KIDNEYS & ELECTROLYTES: Strict monitoring of intake and output Daily weights Avoid nephrotoxic agents Monitor electrolytes and replace as needed Goal urine output of 30mL/hr or 0.5mL/kg/hr Medications to be dosed according to renal function. Avoid contrast if possible ENDOCRINE: Maintain blood glucose between 100-180 at all times. Insulin sliding scale for blood glucose management Hypoglycemia and hyperglycemia protocol in place INFECTIOUS DISEASE: Trend temperature, WBC and procalcitonin level Follow cultures, deescalate antibiotics as soon as possible. Panculture if new onset fever HEMATOLOGY & COAGULATION: Monitor H&H. Keep Hgb > 7 Transfuse 1 unit of PRBC for Hgb < 7 Transfuse 1 pack of platelets of platelets < 20, 000 Watch for any signs and symptoms of bleeding SKIN: Pressure ulcer prevention per facility protocol Specialty mattress as needed ] ATTESTATION BY PHYSICIAN I have seen and examined the patient. I reviewed the documentation, medical decision making, and treatment plan as noted by the mid-level provider above. I agree with the findings and plan of care. ALVERTO MACIAS MD, JANICE B [facility] Mar 18, 2024 11:48
[2024-03-18] MEDS: amLODIPine 5 MG TAB PO SCH (11:59)
[2024-03-18 12:00] VITALS: BP 158/81; PULSE 90; RESP 18; TEMP 98.9
[2024-03-18] MEDS ORDERED: MAGNESIUM 2GM PREMIX 50ML 50 ML IV SCH (12:00)
[2024-03-18 12:03] LABS: AMYLASE 38 U/L (25-115)
[2024-03-18] MEDS: LoSARTan 25 MG TABLET PO SCH (12:03)
[2024-03-18] MEDS: MAGNESIUM 2GM PREMIX 50ML 50 ML IV PRN (14:32)
[2024-03-18] MEDS: PoTASSium chloRIDE 10MEQ SR 10 MEQ/TAB TAB.SR.24H PO PRN (14:33)
--- NOTE | 2024-03-18 15:16 | NUR ---
[facility] Consult: Patient assessed by wound healing team. See wound assessment. Assessment and recommendations provided to primary nurse. Education provided. Addendum: 03/18/24 at 1707 by LAKHWINDER MOSELEY RN RN/ Amended: Links added.
[2024-03-18 16:00] VITALS: BP 162/80; PULSE 77; RESP 19; TEMP 98.6
--- NOTE | 2024-03-18 17:26 | NUR ---
Discharge Planning: Pt. states she lives with her spouse Elier Oneal. Contact number is . PCP is Dr. Monster Chaparro and preferred [facility] [place] Pt. states she is independent with all ADL's. No home health, provider services, or DME. DCP is for home. No d/c needs at this time. Addendum: 03/18/24 at 1734 by IRENA DILLON RN CM Amended: Links added.
[2024-03-18 19:00] VITALS: BP 133/78; PULSE 82; RESP 16; TEMP 98.4
[2024-03-18] MEDS: cefTRIAXone 1G VIAL IVPB SCH (20:18)
[2024-03-18] MEDS: atorVAStatin 40 MG TABLET PO SCH (20:18)
[2024-03-18] MEDS: MUPIROCIN OINTMENT 22 GM TUBE TP SCH (20:18)
[2024-03-18] MEDS: MEMANtine HCL 5 MG TABLET PO SCH (20:56)
[2024-03-18] MEDS: VANCOMYCIN 1G/250ML KIT 250 ML IV SCH (21:03)
[2024-03-18] MEDS: INSULIN GLARgine 100 UNITS/ML 10 ML VIAL SQ SCH (21:06)
[2024-03-18] MEDS: INSULIN humuLIN R 100 UNIT/ML 3ML SQ SCH (21:07)
--- NOTE | 2024-03-18 21:58 | CONS ---
CONSULTATION NOTE Date of Service: Mar 18, 2024 Reason for Consultation: 83 y/o WF presented painful ulcer lateral ankle left with history of trauma to ankle Requesting Physician: FÉLIX CAGLE MD HISTORY OF PRESENT ILLNESS: Patient stated trauma 5 months ago according to notes. She tells me today that it was 7 days ago. she was sent by PCP to the ER with the cc of pain and non healing ulcer. REVIEW OF SYSTEMS CONSTITUTIONAL: Denies fever, chills, or fatigue. HEAD/FACE: No signs of trauma. EENT: Denies eye pain, blurred vision, double vision, or light sensitivity. RESPIRATORY: Denies shortness of breath, cough, wheezing CARDIOVASCULAR: Denies chest pain, palpitation, syncope GASTROINTESTINAL/ABDOMINAL: Denies abdominal pain, constipation, diarrhea, nausea or vomiting GENITOURINARY: Denies dysuria or hematuria. MUSCULOSKELETAL: lateral ankle pain INTEGUMENTARY: dry ulcer lateral ankle NEUROLOGICAL/PSYCH: Denies anxiety, depression, heat or cold intolerance. PAST MEDICAL HISTORY: Diabetes, Aortic stenosis, Hyperlipedemia, PAD PAST SURGICAL HISTORY: Bunion surgery left PAST SOCIAL HISTORY: denies ETOH, drugs or smoking FAMILY HISTORY: non contributory Coded Allergies: No Known Allergies (Unverified Allergy, Unknown, 05/25/21) PHYSICAL EXAM EYES: Anicteric. Pupils equal and reactive. HENT: No oral thrush seen, moist Oral mucosa NECK: Supple, no JVD or thyromegaly. LUNGS: Good air entry. No rales, no rhonchi. CARDIOVASCULAR: S1, S2 regular. No murmur heard. Palpable dorsalis pedis artery pulse. ABDOMEN: Soft, non tender, bowel sounds present, no organomegaly CENTRAL NERVOUS SYSTEM: Awake, alert, oriented x 3. No focal deficits. SKIN: Unstageable ulcer lateral malleoli edema erythema and tenderness LYMPHATICS: No peripheral lymphadenopathy MUSCULOSKELETAL: No joint swelling, erythema or tenderness. EXTREMITIES: No cyanosis or clubbing BACK: No deformity, no pressure ulcer. GENITOURINARY: No dysuria or hematuria Vital Sign (Last 24 Hours) 03/18/24 03/18/24 08:00 16:00 Temp 98.6 Pulse 77 Resp 19 B/P (MAP) 162/80 Pulse Ox 97 O2 Delivery Room Air O2 Flow Rate 0 FiO2 21 Intake & Output (last 24hrs) 03/17/24 03/17/2403/18/25 15:00 23:00 07:00 Output Total 250 ml Balance -250 ml LABS: Laboratory: Test 03/18/24 20:12 03/18/24 05:28 03/17/24 19:47 03/17/24 17:28 Range/Units Whole Blood Glucose 294 H 70-110 MG/DL White Blood Count 5.1 4.8-10.8 K/uL Red Blood Count 3.18 L 4.00-5.50 MIL/uL Hemoglobin 11.3 L 12.0-16.0 g/dL Hematocrit 31.9 L 36-48 % Mean Corpuscular Volume 100.3 H 79-99 fL Mean Corpuscular Hemoglobin 35.5 H 27.0-33.0 pg Mean Corpuscular Hemoglobin Concent 35.4 32.0-36.0 g/dL Red Cell Distribution Width 12.1 11.0-15.5 % Platelet Count 224 # 130-400 K/uL Mean Platelet Volume 9.2 7.5-10.5 fL Immature Granulocyte % (Auto) 0.2 0-1 % Neutrophils (%) (Auto) 53.6 40.0-77.0 % Lymphocytes (%) (Auto) 34.5 21.0-51.0 % Monocytes (%) (Auto) 10.3 3.0-13.0 % Eosinophils (%) (Auto) 1.0 0.0-8.0 % Basophils (%) (Auto) 0.4 0.0-5.0 % Neutrophils # (Auto) 2.7 1.8-7.7 K/uL Lymphocytes # (Auto) 1.8 1.0-4.8 K/uL Monocytes # (Auto) 0.5 0.1-1.0 K/uL Eosinophils # (Auto) 0.05 0.00-0.70 K/uL Basophils # (Auto) 0.02 0.00-0.20 K/uL Absolute Immature Granulocyte (auto 0.01 0-1 K/uL Nucleated Red Blood Cells 0.0 0.0-0.19 % Erythrocyte Sedimentation Rate 55 H 0-30 MM/HR Sodium Level 131 L 136-145 mmol/L Potassium Level 3.4 L 3.5-5.1 mmol/L Chloride Level 98 L 101-111 mmol/L Carbon Dioxide Level 27 21-32 mmol/L Blood Urea Nitrogen 16 7-18 mg/dL Creatinine 0.8 0.5-1.0 mg/dL Glomerular Filtration Rate Calc 72 >90 mL/min Random Glucose 394 H 70-105 mg/dL Total Calcium 8.1 L 8.5-10.1 mg/dL Magnesium Level 1.30 L 1.80-2.40 mg/dL Total Bilirubin 0.3 0.2-1.0 mg/dL Aspartate Amino Transf (AST/SGOT) 4 L 10-37 U/L Alanine Aminotransferase (ALT/SGPT) 9 L 12-78 U/L Alkaline Phosphatase 68 50-136 U/L Total Protein 5.9 L 6.0-8.3 g/dL Albumin 2.6 L 3.5-5.0 g/dL Triglycerides Level 882 H 30-200 mg/dL Cholesterol Level 183 <200 mg/dL LDL Cholesterol 35 0-99 mg/dL HDL Cholesterol 34 L 35-85 mg/dL Amylase Level 38 25-115 U/L Lipase 42 16-77 U/L Bedside Glucose Comment Notified Nurse Urine Color LIGHT-YELLOW YELLOW Urine Appearance CLEAR CLEAR Urine pH 5.0 5.0-8.0 Urine Specific [place] 1.036 H 1.001-1.031 Urine Protein 30 H NEGATIVE mg/dL Urine Glucose (UA) >=1000 H NEGATIVE mg/dL Urine Ketones 10 H NEGATIVE mg/dL Urine Occult Blood NEGATIVE NEGATIVE Urine Nitrate NEGATIVE NEGATIVE Urine Bilirubin NEGATIVE NEGATIVE mg/dL Urine Urobilinogen 0.2 0.2-1.0 mg/dL Urine Leukocyte Esterase 25 H NEGATIVE Lorri/uL Urine RBC 0-1 0-1 /HPF Urine WBC 2-5 H 0-1 /HPF Urine Squamous Epithelial Cells FEW 0-2 /HPF Urine Bacteria RARE None Seen /HPF Test 03/17/24 16:51 Range/Units Red Blood Cell Morphology ANISO 1+ Lactic Acid Level 1.7 0.8-2.5 mmol/L Total Creatine Kinase 43 21-232 U/L Troponin I High Sensitivity 16 4-50 ng/L C-Reactive Protein, Quantitative < 0.50 L 0.5-3.0 mg/L DIAGNOSTICS / RADIOLOGY: Foot x ray No fractures or dislocation hardware on foot from bunion surgery No ankle x ray available ASSESSMENT: Ulcer lateral malleoli Unstageable Trauma history to lateral ankle PLAN: Ankle x ray Continue IV antibiotics Local wound care Mupirocin Vaseline gauze 4x4 kerlix daily to left ankle. Tylenol for pain Q 4 hrs PRN. ROBY MCGRATH DPM Mar 18, 2024 21:58
[2024-03-19] VITALS (9 sets, daily range): BP systolic 114–156; BP diastolic 66–94; PULSE 69–90; RESP 16–20; TEMP 97.3–98.4; O2SAT 96–98
[2024-03-19 04:55] LABS: HEMATOCRIT 34.2 % (36-48); MEAN CORPUSCULAR HEMOGLOBIN 35.2 pg (27.0-33.0); MEAN CORPUSCULAR HGB CONC 35.4 g/dL (32.0-36.0); MEAN CORPUSCULAR VOLUME 99.4 fL (79-99); RED BLOOD CELL COUNT(AUTO) 3.44 MIL/uL (4.00-5.50)
[2024-03-19 05:10] LABS: ALBUMIN 2.6 g/dL (3.5-5.0); BILIRUBIN,TOTAL 0.3 mg/dL (0.2-1.0); CREATININE 0.6 mg/dL (0.5-1.0); MAGNESIUM 1.7 mg/dL (1.80-2.40); POTASSIUM 3.8 mmol/L (3.5-5.1); TOTAL PROTEIN, SERUM 6.2 g/dL (6.0-8.3)
[2024-03-19] MEDS: INSULIN GLARgine 100 UNITS/ML 10 ML VIAL SQ SCH (08:25)
[2024-03-19] MEDS: INSULIN humuLIN R 100 UNIT/ML 3ML SQ SCH (08:26)
[2024-03-19] MEDS: GLIPIZIDE 10 MG PO SCH (08:30)
--- NOTE | 2024-03-19 09:12 | HMCIMG ---
ANKLE COMP 3VWS LT REASON: lateral ankle ulcer with pain TECHNIQUE: 3 views were obtained. FINDINGS: There is no evidence of fracture or dislocation. There is no joint effusion. The soft tissues appear unremarkable. There is no evidence of a radiopaque foreign body. IMPRESSION: No acute findings.
--- NOTE | 2024-03-19 11:37 | PN ---
[facility] PROGRESS NOTE Date of Service: Mar 19, 2024 Time of Service: 11:29 SUBJECTIVE: [83-year-old female admitted due to nonhealing left ankle wound. Apparently patient had a fall at home and wound slowly healing. She presented to the emergency department due to increased swelling and redness on the left ankle wound. Podiatry has been consulted. Recommendation is to continue with local wound care with mupirocin and Vaseline daily. Labs reviewed, she continues with the elevated blood sugars, ranging from 363 to 315, patient was evaluated by Dr. Roman started patient on is still insulin, regular insulin5 units t.i.d. a.c. and Lantus 20 units daily. We will continue to monitor. Physical therapy to eval and treat. Patient has no complaints. REVIEW OF SYSTEMS CONSTITUTIONAL: Denies fevers, chills, or night sweats. No unintentional weight loss reported. NEUROLOGICAL: Denies headache, amaurosis fugax, motor weakness, sensory deficit, vertigo/spinning sensation, gait abnormalities, or tremors. ENT: No hearing loss, otalgia, otorrhea, rhinitis, rhinorrhea, hoarseness, or sore throat. CARDIOVASCULAR: Denies any exertional angina, dyspnea on exertion, orthopnea, paroxysmal nocturnal dyspnea, palpitations, life-threatening arrhythmias, claudication. PULMONARY: Denies any shortness of breath, cough, phlegm/sputum, hemoptysis, pleuritic chest pain. SLEEP: Denies morning headaches, daytime somnolence or napping. Denies difficulty falling asleep, staying asleep, waking from sleep. Denies knowledge of snoring. GASTROINTESTINAL: Denies any type of dysphagia to either liquids or solids. Denies nausea, vomiting, pyrosis, early satiety, abdominal pain, diarrhea, constipation, or changes in stool consistency or caliber. Denies coffee-ground emesis, hematemesis, hematochezia, or melanotic stools. GENITOURINARY: Denies frequency, urgency, nocturia, hematuria or incontinence (Storage/Irritative symptoms.) Low urinary stream, straining to void, urinary intermittency or hesitancy, splitting of the voiding stream, terminal dribbling. ENDOCRINOLOGIC: Denies polyuria, polydipsia, polyphagia or heat/cold intolerances. HEMATOLOGIC: Denies thrombophilia/previous clots, or coagulopathy/bleeding disorders. ONCOLOGIC: Denies personal history of malignancy. DERMATOLOGIC: Denies rashes or pruritus. PSYCHIATRIC: Denies any suicidal or homicidal ideation. Denies hallucinations. PHYSICAL EXAM GENERAL APPEARANCE: The patient is awake, alert, and oriented, in no acute cardiopulmonary distress. NEUROLOGICAL: Cranial nerves II-XII grossly intact. Motor is 5/5 in bilateral upper and lower extremities proximal to distal. No sensory deficits. HEENT: Face is symmetric. Pupils are equal and reactive. Extraocular movements are intact. NECK: Supple. No JVD. No thyromegaly. No submental, submandibular, pre- /postauricular, occipital or supraclavicular lymphadenopathy. CHEST: Normal chest expansion. No Telemetry. LUNGS: Absence of any rales, rhonchi or any wheezing. CARDIOVASCULAR: Regular. S1 and S2 normal. No appreciable rubs, murmurs or gallops. ABDOMEN: Soft, nontender, and nondistended. There is no rebound, voluntary guarding, or rigidity. : Deferred. No Shook. EXTREMITIES: Swollen left foot with ulcer located at outer aspect of the ankle SKIN: erythema and some dark discoloration of chronic left foot ulcer Vital Signs (last 8hr) Date Time Temp Pulse Resp B/P (MAP) Pulse Ox O2 Delivery O2 Flow Rate FiO2 03/19/24 08:30 98 Room Air* 0 21 03/19/24 08:00 98.2 69 18 144/76 98 Room Air 03/19/24 04:00 98.2 73 18 143/78 98 Room Air LABS: Laboratory: Test 03/19/24 05:46 03/19/24 04:22 03/18/24 05:28 03/17/24 19:47 Range/Units Whole Blood Glucose 315 H 70-110 MG/DL White Blood Count 5.0 4.8-10.8 K/uL Red Blood Count 3.44 L 4.00-5.50 MIL/uL Hemoglobin 12.1 12.0-16.0 g/dL Hematocrit 34.2 L 36-48 % Mean Corpuscular Volume 99.4 H 79-99 fL Mean Corpuscular Hemoglobin 35.2 H 27.0-33.0 pg Mean Corpuscular Hemoglobin Concent 35.4 32.0-36.0 g/dL Red Cell Distribution Width 12.0 11.0-15.5 % Platelet Count 238 130-400 K/uL Mean Platelet Volume 9.2 7.5-10.5 fL Nucleated Red Blood Cells 0.0 0.0-0.19 % Sodium Level 138 136-145 mmol/L Potassium Level 3.8 3.5-5.1 mmol/L Chloride Level 102 101-111 mmol/L Carbon Dioxide Level 28 21-32 mmol/L Blood Urea Nitrogen 13 7-18 mg/dL Creatinine 0.6 0.5-1.0 mg/dL Glomerular Filtration Rate Calc 88 >90 mL/min Random Glucose 269 H 70-105 mg/dL Total Calcium 8.5 8.5-10.1 mg/dL Magnesium Level 1.70 L 1.80-2.40 mg/dL Total Bilirubin 0.3 0.2-1.0 mg/dL Aspartate Amino Transf (AST/SGOT) 10 10-37 U/L Alanine Aminotransferase (ALT/SGPT) 14 # 12-78 U/L Alkaline Phosphatase 57 50-136 U/L Total Protein 6.2 6.0-8.3 g/dL Albumin 2.6 L 3.5-5.0 g/dL Immature Granulocyte % (Auto) 0.2 0-1 % Neutrophils (%) (Auto) 53.6 40.0-77.0 % Lymphocytes (%) (Auto) 34.5 21.0-51.0 % Monocytes (%) (Auto) 10.3 3.0-13.0 % Eosinophils (%) (Auto) 1.0 0.0-8.0 % Basophils (%) (Auto) 0.4 0.0-5.0 % Neutrophils # (Auto) 2.7 1.8-7.7 K/uL Lymphocytes # (Auto) 1.8 1.0-4.8 K/uL Monocytes # (Auto) 0.5 0.1-1.0 K/uL Eosinophils # (Auto) 0.05 0.00-0.70 K/uL Basophils # (Auto) 0.02 0.00-0.20 K/uL Absolute Immature Granulocyte (auto 0.01 0-1 K/uL Erythrocyte Sedimentation Rate 55 H 0-30 MM/HR Triglycerides Level 882 H 30-200 mg/dL Cholesterol Level 183 <200 mg/dL LDL Cholesterol 35 0-99 mg/dL HDL Cholesterol 34 L 35-85 mg/dL Amylase Level 38 25-115 U/L Lipase 42 16-77 U/L Bedside Glucose Comment Notified Nurse Test 03/17/24 17:28 03/17/24 16:51 Range/Units Urine Color LIGHT-YELLOW YELLOW Urine Appearance CLEAR CLEAR Urine pH 5.0 5.0-8.0 Urine Specific [place] 1.036 H 1.001-1.031 Urine Protein 30 H NEGATIVE mg/dL Urine Glucose (UA) >=1000 H NEGATIVE mg/dL Urine Ketones 10 H NEGATIVE mg/dL Urine Occult Blood NEGATIVE NEGATIVE Urine Nitrate NEGATIVE NEGATIVE Urine Bilirubin NEGATIVE NEGATIVE mg/dL Urine Urobilinogen 0.2 0.2-1.0 mg/dL Urine Leukocyte Esterase 25 H NEGATIVE Lorri/uL Urine RBC 0-1 0-1 /HPF Urine WBC 2-5 H 0-1 /HPF Urine Squamous Epithelial Cells FEW 0-2 /HPF Urine Bacteria RARE None Seen /HPF Red Blood Cell Morphology ANISO 1+ Lactic Acid Level 1.7 0.8-2.5 mmol/L Total Creatine Kinase 43 21-232 U/L Troponin I High Sensitivity 16 4-50 ng/L C-Reactive Protein, Quantitative < 0.50 L 0.5-3.0 mg/L Current Medications Medications (Trade) Dose Ordered Sig/Bebeto Route PRN Reason Start Time Stop Time Status Last Admin Dose Admin Acetaminophen (TYLenol 325MG TAB) 650 mg Q4H PRN PO MILD PAIN (1-3) 03/17/24 20:30 04/16/24 20:29 03/19/24 10:30 650 MG Acetaminophen (TYLenol 325MG TAB) 650 mg Q6H PRN PO TEMPERATURE GREATER THAN 101.5 03/17/24 20:30 04/16/24 20:29 Amlodipine Besylate (NorvASC 5MG TAB) 5 mg DAILY PO 03/18/24 11:30 04/17/24 11:29 03/19/24 08:30 5 MG Atorvastatin Calcium (LIPItor 40MG) 40 mg HS PO 03/18/24 21:00 04/17/24 20:59 03/18/24 20:18 40 MG Ceftriaxone Sodium 1 gm/ Sodium Chloride 50 ml @ 100 mls/hr Q24H IV 03/17/24 20:30 03/17/24 20:31 DC Ceftriaxone Sodium (ROCEphine 1G INJ) 1 gm Q24H IVPB 03/18/24 20:30 03/28/24 20:29 03/18/24 20:18 1 GM Dextrose (D50w) 50 ml AD PRN IV HYPOGLYCEMIA PROTOCOL 03/17/24 20:30 04/16/24 20:29 Enoxaparin Sodium (Lovenox) 30 mg DAILY SQ 03/18/24 09:00 04/17/24 08:59 03/19/24 08:31 30 MG Famotidine (Pepcid 20mg Tab) 20 mg Q24H PO 03/17/24 21:00 04/16/24 20:59 03/18/24 20:18 20 MG Glipizide (GLUCOtrol XL 10MG TAB) 10 mg DAILYBKFST PO 03/19/24 08:00 04/18/24 07:59 03/19/24 08:30 10 MG Glucagon (Glucagon 1mg Kit) 1 mg AD PRN IM HYPOGLYCEMIA PROTOCOL 03/17/24 20:30 04/16/24 20:29 Hydralazine HCl (APRESOLine 20MG INJ) 5 mg Q6H PRN IV ADMINISTER FOR SBP > 160 03/18/24 11:30 04/17/24 11:29 Insulin Glargine (LANtus 100 UNITS/ML 10 ML VIAL) 10 units HS SQ 03/18/24 21:00 03/19/24 07:00 DC 03/18/24 21:06 10 UNITS Insulin Glargine (LANtus 100 UNITS/ML 10 ML VIAL) 20 units DAILY SQ 03/19/24 09:00 04/17/24 20:59 03/19/24 08:25 20 UNITS Insulin Human Regular (humuLIN R 100 UNIT/ML 3ML) 5 unit TIDAC SQ 03/19/24 07:30 04/18/24 07:29 03/19/24 08:26 5 UNIT Insulin Human Regular (humuLIN R 100 UNIT/ML 3ML) INSULIN SLIDING SCAL... ACHS SQ 03/17/24 21:00 03/18/24 19:50 DC 03/18/24 17:18 5 UNIT Insulin Human Regular (humuLIN R 100 UNIT/ML 3ML) INSULIN SLIDING SCAL... ACHS SQ 03/18/24 21:00 04/17/24 20:59 03/19/24 06:46 12 UNIT Losartan Potassium (CozAAR 25MG TAB) 25 mg DAILY PO 03/18/24 12:00 04/17/24 11:59 03/19/24 08:30 25 MG Magnesium Sulfate 50 ml @ 0 mls/hr PROTOCOL IV 03/18/24 12:00 03/18/24 11:50 DC Magnesium Sulfate 50 ml @ 0 mls/hr PROTOCOL PRN IV OTHER [SEE ORDER COMMENTS] 03/17/24 20:30 04/16/24 20:29 03/19/24 09:50 25 MLS/HR Memantine (NAmenDA 5 MG TAB) 5 mg BID PO 03/18/24 21:00 04/17/24 20:59 03/19/24 08:30 5 MG Mupirocin (Bactroban Oint) 1 APPL ONCE TP 03/18/24 19:00 04/17/24 18:59 03/18/24 20:18 1 APPL Ondansetron HCl (zoFRAN 4MG INJ) 4 mg Q6H PRN IV NAUSEA/VOMITING 03/17/24 20:30 04/16/24 20:29 Potassium Chloride 100 ml @ 100 mls/hr AD PRN IV POTASSIUM PROTOCOL 03/17/24 20:30 04/16/24 20:29 Potassium Chloride (K-Dur 10meq Sr Tab) 10 meq AD PRN PO POTASSIUM PROTOCOL 03/18/24 11:30 04/16/24 20:29 03/19/24 09:50 10 MEQ Potassium Chloride (K-Dur/Klor-Con 20meq) 10 meq AD PRN PO POTASSIUM PROTOCOL 03/17/24 20:30 03/18/24 11:17 DC 03/18/24 06:42 10 MEQ Potassium Chloride (KCl 10% Elixir 20meq/15ml) 10 meq AD PRN PO POTASSIUM PROTOCOL 03/17/24 20:30 04/16/24 20:29 Vancomycin HCl 250 ml @ 125 mls/hr Q24H IV 03/18/24 21:00 03/28/24 20:59 03/18/24 21:03 125 MLS/HR Vancomycin HCl (Vancomycin Protocol) 1 each AD IV 03/17/24 21:00 03/31/24 20:59 DIAGNOSTICS / RADIOLOGY: [[facility] [address] [place], [place] [id number] IMAGING REPORT Signed PATIENT: BRAVO CARR MR#: [id number] : 1940 SEX: F AGE: 83 LOCATION: 3BH ORDER 41 STATUS: ADM IN REPORT#: [id number] SERVICE 39 REASON: lateral ankle ulcer with pain ORDERING PHYSICIAN: ROBY HERNANDEZ DPM PROCEDURE: [id number] - ANKLE COMP 3VWS LT ANKLE COMP 3VWS LT REASON: lateral ankle ulcer with pain TECHNIQUE: 3 views were obtained. FINDINGS: There is no evidence of fracture or dislocation. There is no joint effusion. The soft tissues appear unremarkable. There is no evidence of a radiopaque foreign body. IMPRESSION: No acute findings. DICTATED BY: CANDIDA HAMPTON MD DATE: 03/19/24909 ELECTRONICALLY SIGNED BY: CANDIDA HAMPTON MD DATE: 03/19/24911 ] ASSESSMENT: Hypokalemia, POA Hyponatremia, POA Hypomagnesemia, POA Moderate protein caloric malnutrition Left foot ulcer with cellulitis POA Hyperglycemia due to uncontrolled diabetes POA Hyperlipidemia POA Pseudohyponatremia due to hyperglycemia POA Peripheral arterial disease POA History of severe aortic stenosis POA History of Dementia with agitation POA PLAN: Continue admission to the medical-surgical floor Continue with consistent carb and heart healthy diet Continue with IV antibiotics with Rocephin and vancomycin Dr. Hernandez has been consulted, we will follow his wound care recommendations Continue with supportive care: GI and DVT prophylaxis with famotidine and Lovenox We will replete her electrolytes as necessary We will repeat labs tomorrow Home medication has been reviewed and reconciled Continue with blood sugar management with a.c. and HS glucometer, we will start patient on Lantus 10 units at HS We will request for hemoglobin A1c Patient was very elevated triglycerides we will order stat amylase and lipase to rule out pancreatitis Case discussed with attending physician and came up with above treatment and plan of care. Code Status: Full Resuscitation Disposition: TBD Prognosis: Guarded NEURO: Minimize central acting medications as possible. Fall Precautions. Well lighted room through the day and minimize interruptions through the night to prevent acute delirium. PULMONARY: Supplemental 02 as needed BiPAP as necessary, for respiratory distress Titrate Fio2 to keep Spo2 > or = 90% DuoNebs and CPT as needed IS hourly while awake for pulmonary hygiene Out of bed to chair as tolerated VAP Bundle Maintain aspiration precautions at all times CARDIOVASCULAR: Follow hemodynamics. Vital signs per facility protocol GI & NUTRITION: Continue nutritional support Aspirations precautions Prokinetic agents and laxatives as needed KIDNEYS & ELECTROLYTES: Strict monitoring of intake and output Daily weights Avoid nephrotoxic agents Monitor electrolytes and replace as needed Goal urine output of 30mL/hr or 0.5mL/kg/hr Medications to be dosed according to renal function. Avoid contrast if possible ENDOCRINE: Maintain blood glucose between 100-180 at all times. Insulin sliding scale for blood glucose management Hypoglycemia and hyperglycemia protocol in place INFECTIOUS DISEASE: Trend temperature, WBC and procalcitonin level Follow cultures, deescalate antibiotics as soon as possible. Panculture if new onset fever HEMATOLOGY & COAGULATION: Monitor H&H. Keep Hgb > 7 Transfuse 1 unit of PRBC for Hgb < 7 Transfuse 1 pack of platelets of platelets < 20, 000 Watch for any signs and symptoms of bleeding SKIN: Pressure ulcer prevention per facility protocol Specialty mattress as needed ] ATTESTATION BY PHYSICIAN I have seen and examined the patient. I reviewed the documentation, medical decision making, and treatment plan as noted by the mid-level provider above. I agree with the findings and plan of care. ALVERTO MACIAS MD, JANICE B [facility] Mar 19, 2024 11:37
--- NOTE | 2024-03-19 15:31 | NUR ---
Discharge Planning: Pt. offered placement for PT. States she wants to go home with her spouse. States she is independent with all ADL's. Pt. is still pending PT evaluation. Karen Lopez and patient's nurse updated.
--- NOTE | 2024-03-19 16:59 | CONS ---
CONSULT NOTE: endocrinology consult chief complaint: left ankle injury reason for consult: uncontrolled dm-2 dos:03/19/24 HISTORY OF PRESENT ILLNESS: This is an 83-year-old female with past medical history of diabetes, hyperlipidemia, severe aortic stenosis, peripheral arterial disease and dementia with agitation who presents to the ED for evaluation of chronic left ankle injury.Patient reports she fell few months ago and injured her left foot and ever since then ,wound was not healing and now it becomes red and swollen and she is concern for an infection and patient is reportedly being sent by her PCP. Labs: CBC is unremarkable. Sodium 129, chloride 94, glucose 476, CRP less than 0.50 troponin 16. Urinalysis positive with esterase, glucose, protein, urine WBC 2-5. Left foot x-ray result revealed no evidence for fracture or os teomyelitis. Chest x-ray result is unremarkable. While in the ER patient received 1 L LR bolus, 5 units of insulin IV, Rocephin 1 g IV and vancomycin 1 g IV. We will admit patient for further medical management. she use metformin 1000 mg bid and also injects insulin 20 units but does not remember the name of insulin. she does not remember the name of other diabetic pills. hba1v >15.5% glucose was running greater than 300 mg/dl but improving now. REVIEW OF SYSTEMS CONSTITUTIONAL: Denies fevers, chills, or night sweats. No unintentional weight loss reported. NEUROLOGICAL: Denies headache, amaurosis fugax, motor weakness, sensory deficit, vertigo/spinning sensation, gait abnormalities, or tremors. ENT: No hearing loss, otalgia, otorrhea, rhinitis, rhinorrhea, hoarseness, or sore throat. CARDIOVASCULAR: Denies any exertional angina, dyspnea on exertion, orthopnea, paroxysmal nocturnal dyspnea, palpitations, life-threatening arrhythmias, claudication. PULMONARY: Denies any shortness of breath, cough, phlegm/sputum, hemoptysis, pleuritic chest pain. SLEEP: Denies morning headaches, daytime somnolence or napping. Denies difficulty falling asleep, staying asleep, waking from sleep. Denies knowledge of snoring. GASTROINTESTINAL: Denies any type of dysphagia to either liquids or solids. Denies nausea, vomiting, pyrosis, early satiety, abdominal pain, diarrhea, constipation, or changes in stool consistency or caliber. Denies coffee-ground e mesis, hematemesis, hematochezia, or melanotic stools. GENITOURINARY: Denies frequency, urgency, nocturia, hematuria or incontinence (Storage/Irritative symptoms.) Low urinary stream, straining to void, urinary intermittency or hesitancy, splitting of the voiding stream, terminal dribbling. ENDOCRINOLOGIC: Denies polyuria, polydipsia, polyphagia or heat/cold intolerances. HEMATOLOGIC: Denies thrombophilia/previous clots, or coagulopathy/bleeding disorders. ONCOLOGIC: Denies personal history of malignancy. DERMATOLOGIC: Denies rashes or pruritus. PSYCHIATRIC: Denies any suicidal or homicidal ideation. Denies hallucinations. PAST MEDICAL HISTORY: [ diabetes, hyperlipidemia, severe aortic stenosis, peripheral arterial disease and dementia with agitation ] PAST SURGICAL HISTORY: [Patient denies ] PAST SOCIAL HISTORY: [ Patient denies alcohol tobacco and recreational drug use. Patient lives with .] FAMILY HISTORY: [Noncontributory ] Coded Allergies: No Known Allergies (Unverified Allergy, Unknown, 05/25/21) PHYSICAL EXAM GENERAL APPEARANCE: The patient is awake, alert, and oriented, in no acute cardiopulmonary distress. NEUROLOGICAL: Cranial nerves II-XII grossly intact. Motor is 5/5 in bilateral upper and lower extremities proximal to distal. No sensory deficits. HEENT: Face is symmetric. Pupils are equal and reactive. Extraocular movements are intact. NECK: Supple. No JVD. No thyromegaly. No submental, submandibular, pre- /postauricular, occipital or supraclavicular lymphadenopathy. CHEST: Normal chest expansion. No Telemetry. LUNGS: Absence of any rales, rhonchi or any wheezing. CARDIOVASCULAR: Regular. S1 and S2 normal. No appreciable rubs, murmurs or gallops. ABDOMEN: Soft, nontender, and nondistended. There is no rebound, voluntary guarding, or rigidity. : Deferred. No Shook. EXTREMITIES: Swollen left foot with ulcer located at outer aspect of the ankle SKIN: erythema and some dark discoloration of chronic left foot ulcer ASSESSMENT: Hyperglycemia due to uncontrolled diabetes POA she use metformin 1000 mg bid and also injects insulin 20 units but does not remember the name of insulin. she does not remember the name of other diabetic pills. hba1v >15.5% glucose was running greater than 300 mg/dl but improving now. Left foot ulcer with cellulitis POA Hyperlipidemia POA Pseudohyponatremia due to hyperglycemia POA Peripheral arterial disease POA History of severe aortic stenosis POA History of Dementia with agitation POA PLAN: start lantus 20 units daily start regular insulin 5 units tid before meals start medium dose ssi monitor glucose qx6 hourly. needs to get home diabetic pills and insulin for adjustment. thanks for allowing me to particpate in patient care and will continue to follow up. Vital Signs 03/19/24 03/19/24 08:00 08:30 Temp 98.2 Pulse 69 Resp 18 B/P (MAP) 144/76 Pulse Ox 98 O2 Delivery Room Air* O2 Flow Rate 0 FiO2 21 Hematology Labs: Test 03/19/24 04:22 03/18/24 05:28 Range/Units White Blood Count 5.0 4.8-10.8 K/uL Red Blood Count 3.44 L 4.00-5.50 MIL/uL Hemoglobin 12.1 12.0-16.0 g/dL Hematocrit 34.2 L 36-48 % Mean Corpuscular Volume 99.4 H 79-99 fL Mean Corpuscular Hemoglobin 35.2 H 27.0-33.0 pg Mean Corpuscular Hemoglobin Concent 35.4 32.0-36.0 g/dL Red Cell Distribution Width 12.0 11.0-15.5 % Platelet Count 238 130-400 K/uL Mean Platelet Volume 9.2 7.5-10.5 fL Nucleated Red Blood Cells 0.0 0.0-0.19 % Immature Granulocyte % (Auto) 0.2 0-1 % Neutrophils (%) (Auto) 53.6 40.0-77.0 % Lymphocytes (%) (Auto) 34.5 21.0-51.0 % Monocytes (%) (Auto) 10.3 3.0-13.0 % Eosinophils (%) (Auto) 1.0 0.0-8.0 % Basophils (%) (Auto) 0.4 0.0-5.0 % Neutrophils # (Auto) 2.7 1.8-7.7 K/uL Lymphocytes # (Auto) 1.8 1.0-4.8 K/uL Monocytes # (Auto) 0.5 0.1-1.0 K/uL Eosinophils # (Auto) 0.05 0.00-0.70 K/uL Basophils # (Auto) 0.02 0.00-0.20 K/uL Absolute Immature Granulocyte (auto 0.01 0-1 K/uL Erythrocyte Sedimentation Rate 55 H 0-30 MM/HR Chemistry Labs: Test 03/19/24 16:39 03/19/24 04:22 03/18/24 05:28 03/17/24 19:47 Range/Units Whole Blood Glucose 140 H 70-110 MG/DL Sodium Level 138 136-145 mmol/L Potassium Level 3.8 3.5-5.1 mmol/L Chloride Level 102 101-111 mmol/L Carbon Dioxide Level 28 21-32 mmol/L Blood Urea Nitrogen 13 7-18 mg/dL Creatinine 0.6 0.5-1.0 mg/dL Glomerular Filtration Rate Calc 88 >90 mL/min Random Glucose 269 H 70-105 mg/dL Total Calcium 8.5 8.5-10.1 mg/dL Magnesium Level 1.70 L 1.80-2.40 mg/dL Total Bilirubin 0.3 0.2-1.0 mg/dL Aspartate Amino Transf (AST/SGOT) 10 10-37 U/L Alanine Aminotransferase (ALT/SGPT) 14 # 12-78 U/L Alkaline Phosphatase 57 50-136 U/L Total Protein 6.2 6.0-8.3 g/dL Albumin 2.6 L 3.5-5.0 g/dL Hemoglobin A1c >15.5 H 4.8-5.6 % Triglycerides Level 882 H 30-200 mg/dL Cholesterol Level 183 <200 mg/dL LDL Cholesterol 35 0-99 mg/dL HDL Cholesterol 34 L 35-85 mg/dL Amylase Level 38 25-115 U/L Lipase 42 16-77 U/L Bedside Glucose Comment Notified Nurse Current Medications Medications (Trade) Dose Ordered Sig/Bebeto Route Start Time Stop Time Status Last Admin Dose Admin Amlodipine Besylate (NorvASC 5MG TAB) 5 mg DAILY PO 03/18/24 11:30 04/17/24 11:29 03/19/24 08:30 5 MG Atorvastatin Calcium (LIPItor 40MG) 40 mg HS PO 03/18/24 21:00 04/17/24 20:59 03/18/24 20:18 40 MG Ceftriaxone Sodium 1 gm/ Sodium Chloride 50 ml @ 100 mls/hr Q24H IV 03/17/24 20:30 03/17/24 20:31 DC Ceftriaxone Sodium (ROCEphine 1G INJ) 1 gm Q24H IVPB 03/18/24 20:30 03/28/24 20:29 03/18/24 20:18 1 GM Enoxaparin Sodium (Lovenox) 30 mg DAILY SQ 03/18/24 09:00 04/17/24 08:59 03/19/24 08:31 30 MG Famotidine (Pepcid 20mg Tab) 20 mg Q24H PO 03/17/24 21:00 04/16/24 20:59 03/18/24 20:18 20 MG Glipizide (GLUCOtrol XL 10MG TAB) 10 mg DAILYBKFST PO 03/19/24 08:00 04/18/24 07:59 03/19/24 08:30 10 MG Insulin Glargine (LANtus 100 UNITS/ML 10 ML VIAL) 10 units HS SQ 03/18/24 21:00 03/19/24 07:00 DC 03/18/24 21:06 10 UNITS Insulin Glargine (LANtus 100 UNITS/ML 10 ML VIAL) 20 units DAILY SQ 03/19/24 09:00 04/17/24 20:59 03/19/24 08:25 20 UNITS Insulin Human Regular (humuLIN R 100 UNIT/ML 3ML) 5 unit TIDAC SQ 03/19/24 07:30 04/18/24 07:29 03/19/24 12:19 5 UNIT Insulin Human Regular (humuLIN R 100 UNIT/ML 3ML) INSULIN SLIDING SCAL... ACHS SQ 03/17/24 21:00 03/18/24 19:50 DC 03/18/24 17:18 5 UNIT Insulin Human Regular (humuLIN R 100 UNIT/ML 3ML) INSULIN SLIDING SCAL... ACHS SQ 03/18/24 21:00 04/17/24 20:59 03/19/24 12:17 6 UNIT Losartan Potassium (CozAAR 25MG TAB) 25 mg DAILY PO 03/18/24 12:00 04/17/24 11:59 03/19/24 08:30 25 MG Magnesium Sulfate 50 ml @ 0 mls/hr PROTOCOL IV 03/18/24 12:00 03/18/24 11:50 DC Magnesium Sulfate 50 ml @ 0 mls/hr PROTOCOL IV 03/19/24 12:00 04/18/24 11:59 Memantine (NAmenDA 5 MG TAB) 5 mg BID PO 03/18/24 21:00 04/17/24 20:59 03/19/24 08:30 5 MG Mupirocin (Bactroban Oint) 1 APPL ONCE TP 03/18/24 19:00 04/17/24 18:59 03/18/24 20:18 1 APPL Vancomycin HCl 250 ml @ 125 mls/hr Q24H IV 03/18/24 21:00 03/28/24 20:59 03/18/24 21:03 125 MLS/HR Vancomycin HCl (Vancomycin Protocol) 1 each AD IV 03/17/24 21:00 03/31/24 20:59 MILY WATSON MD Mar 19, 2024 16:59
[2024-03-20] VITALS (8 sets, daily range): BP systolic 122–169; BP diastolic 71–89; PULSE 74–87; RESP 16; TEMP 98.1–98.8; O2SAT 97
[2024-03-20] MEDS: INSULIN humuLIN R 100 UNIT/ML 3ML SQ SCH (06:38)
[2024-03-20 06:46] LABS: HEMATOCRIT 35.3 % (36-48); MEAN CORPUSCULAR HEMOGLOBIN 35.7 pg (27.0-33.0); MEAN CORPUSCULAR HGB CONC 34.3 g/dL (32.0-36.0); MEAN CORPUSCULAR VOLUME 104.1 fL (79-99); RED BLOOD CELL COUNT(AUTO) 3.39 MIL/uL (4.00-5.50); RED CELL DISTRIBUTION WIDTH 12.4 % (11.0-15.5); WHITE BLOOD COUNT (AUTO) 5.1 K/uL (4.8-10.8)
[2024-03-20 07:19] LABS: CREATININE 0.6 mg/dL (0.5-1.0); MAGNESIUM 1.5 mg/dL (1.80-2.40); POTASSIUM 4.1 mmol/L (3.5-5.1)
[2024-03-20] MEDS: MAGNESIUM 2GM PREMIX 50ML 50 ML IV SCH (08:33)
[2024-03-20] MEDS: LoSARTan 25 MG TABLET PO SCH (12:00)
--- NOTE | 2024-03-20 12:26 | PN ---
[facility] PROGRESS NOTE Date of Service: Mar 20, 2024 Time of Service: 12:05 SUBJECTIVE: [83-year-old female admitted due to nonhealing left ankle wound. Apparently patient had a fall at home and wound slowly healing. She presented to the emergency department due to increased swelling and redness on the left ankle wound. Podiatry has been consulted. Recommendation is to continue with local wound care with mupirocin and Vaseline daily. Patient was evaluated in room 310, patient is alert and oriented x3. they should today is blood sugars still elevated in the 200s low 300s. Adjustments on her antidiabetic started, patient was placed on Lantus 20 units. Hgb A1c >15.5, regular 5 units TIDAC. Her blood pressure is elevated at 169/88. We will adjust losartan to 25 mg p.o. b.i.d. today. REVIEW OF SYSTEMS CONSTITUTIONAL: Denies fevers, chills, or night sweats. No unintentional weight loss reported. NEUROLOGICAL: Denies headache, amaurosis fugax, motor weakness, sensory deficit, vertigo/spinning sensation, gait abnormalities, or tremors. ENT: No hearing loss, otalgia, otorrhea, rhinitis, rhinorrhea, hoarseness, or sore throat. CARDIOVASCULAR: Denies any exertional angina, dyspnea on exertion, orthopnea, paroxysmal nocturnal dyspnea, palpitations, life-threatening arrhythmias, claudication. PULMONARY: Denies any shortness of breath, cough, phlegm/sputum, hemoptysis, pleuritic chest pain. SLEEP: Denies morning headaches, daytime somnolence or napping. Denies difficulty falling asleep, staying asleep, waking from sleep. Denies knowledge of snoring. GASTROINTESTINAL: Denies any type of dysphagia to either liquids or solids. Denies nausea, vomiting, pyrosis, early satiety, abdominal pain, diarrhea, constipation, or changes in stool consistency or caliber. Denies coffee-ground emesis, hematemesis, hematochezia, or melanotic stools. GENITOURINARY: Denies frequency, urgency, nocturia, hematuria or incontinence (Storage/Irritative symptoms.) Low urinary stream, straining to void, urinary intermittency or hesitancy, splitting of the voiding stream, terminal dribbling. ENDOCRINOLOGIC: Denies polyuria, polydipsia, polyphagia or heat/cold intoleranc es. HEMATOLOGIC: Denies thrombophilia/previous clots, or coagulopathy/bleeding disorders. ONCOLOGIC: Denies personal history of malignancy. DERMATOLOGIC: Denies rashes or pruritus. PSYCHIATRIC: Denies any suicidal or homicidal ideation. Denies hallucinations. PHYSICAL EXAM GENERAL APPEARANCE: The patient is awake, alert, and oriented, in no acute cardiopulmonary distress. NEUROLOGICAL: Cranial nerves II-XII grossly intact. Motor is 5/5 in bilateral upper and lower extremities proximal to distal. No sensory deficits. HEENT: Face is symmetric. Pupils are equal and reactive. Extraocular movements are intact. NECK: Supple. No JVD. No thyromegaly. No submental, submandibular, pre- /postauricular, occipital or supraclavicular lymphadenopathy. CHEST: Normal chest expansion. No Telemetry. LUNGS: Absence of any rales, rhonchi or any wheezing. CARDIOVASCULAR: Regular. S1 and S2 normal. No appreciable rubs, murmurs or gallops. ABDOMEN: Soft, nontender, and nondistended. There is no rebound, voluntary guarding, or rigidity. : Deferred. No Shook. EXTREMITIES: Swollen left foot with ulcer located at outer aspect of the ankle SKIN: erythema and some dark discoloration of chronic left foot ulcer Vital Signs (last 8hr) Date Time Temp Pulse Resp B/P (MAP) Pulse Ox O2 Delivery O2 Flow Rate FiO2 03/20/24 08:35 97 Room Air* 0 21 03/20/24 08:00 98.6 77 16 169/88 97 Room Air 0.0 LABS: Laboratory: Test 03/20/24 05:59 03/19/24 19:27 03/19/24 04:22 Range/Units White Blood Count 5.1 4.8-10.8 K/uL Red Blood Count 3.39 L 4.00-5.50 MIL/uL Hemoglobin 12.1 12.0-16.0 g/dL Hematocrit 35.3 L 36-48 % Mean Corpuscular Volume 104.1 H 79-99 fL Mean Corpuscular Hemoglobin 35.7 H 27.0-33.0 pg Mean Corpuscular Hemoglobin Concent 34.3 32.0-36.0 g/dL Red Cell Distribution Width 12.4 11.0-15.5 % Platelet Count 244 130-400 K/uL Mean Platelet Volume 9.5 7.5-10.5 fL Nucleated Red Blood Cells 0.0 0.0-0.19 % Sodium Level 139 136-145 mmol/L Potassium Level 4.1 3.5-5.1 mmol/L Chloride Level 105 101-111 mmol/L Carbon Dioxide Level 27 21-32 mmol/L Blood Urea Nitrogen 14 7-18 mg/dL Creatinine 0.6 0.5-1.0 mg/dL Glomerular Filtration Rate Calc 88 >90 mL/min Random Glucose 265 H 70-105 mg/dL Total Calcium 8.6 8.5-10.1 mg/dL Magnesium Level 1.50 L 1.80-2.40 mg/dL Whole Blood Glucose 228 #H 70-110 MG/DL Total Bilirubin 0.3 0.2-1.0 mg/dL Aspartate Amino Transf (AST/SGOT) 10 10-37 U/L Alanine Aminotransferase (ALT/SGPT) 14 # 12-78 U/L Alkaline Phosphatase 57 50-136 U/L Total Protein 6.2 6.0-8.3 g/dL Albumin 2.6 L 3.5-5.0 g/dL Current Medications Medications (Trade) Dose Ordered Sig/Bebeto Route PRN Reason Start Time Stop Time Status Last Admin Dose Admin Acetaminophen (TYLenol 325MG TAB) 650 mg Q4H PRN PO MILD PAIN (1-3) 03/17/24 20:30 04/16/24 20:29 03/19/24 10:30 650 MG Acetaminophen (TYLenol 325MG TAB) 650 mg Q6H PRN PO TEMPERATURE GREATER THAN 101.5 03/17/24 20:30 04/16/24 20:29 Amlodipine Besylate (NorvASC 5MG TAB) 5 mg DAILY PO 03/18/24 11:30 04/17/24 11:29 03/20/24 08:32 5 MG Atorvastatin Calcium (LIPItor 40MG) 40 mg HS PO 03/18/24 21:00 04/17/24 20:59 03/19/24 19:59 40 MG Ceftriaxone Sodium 1 gm/ Sodium Chloride 50 ml @ 100 mls/hr Q24H IV 03/17/24 20:30 03/17/24 20:31 DC Ceftriaxone Sodium (ROCEphine 1G INJ) 1 gm Q24H IVPB 03/18/24 20:30 03/28/24 20:29 03/19/24 20:00 1 GM Dextrose (D50w) 50 ml AD PRN IV HYPOGLYCEMIA PROTOCOL 03/17/24 20:30 04/16/24 20:29 Enoxaparin Sodium (Lovenox) 30 mg DAILY SQ 03/18/24 09:00 04/17/24 08:59 03/20/24 08:33 30 MG Famotidine (Pepcid 20mg Tab) 20 mg Q24H PO 03/17/24 21:00 04/16/24 20:59 03/19/24 19:59 20 MG Glipizide (GLUCOtrol XL 10MG TAB) 10 mg DAILYBKFST PO 03/19/24 08:00 04/18/24 07:59 03/20/24 08:33 10 MG Glucagon (Glucagon 1mg Kit) 1 mg AD PRN IM HYPOGLYCEMIA PROTOCOL 03/17/24 20:30 04/16/24 20:29 Hydralazine HCl (APRESOLine 20MG INJ) 5 mg Q6H PRN IV ADMINISTER FOR SBP > 160 03/18/24 11:30 04/17/24 11:29 Insulin Glargine (LANtus 100 UNITS/ML 10 ML VIAL) 10 units HS SQ 03/18/24 21:00 03/19/24 07:00 DC 03/18/24 21:06 10 UNITS Insulin Glargine (LANtus 100 UNITS/ML 10 ML VIAL) 20 units DAILY SQ 03/19/24 09:00 04/17/24 20:59 03/20/24 08:32 20 UNITS Insulin Human Regular (humuLIN R 100 UNIT/ML 3ML) 5 unit TIDAC SQ 03/19/24 07:30 03/20/24 06:33 DC 03/20/24 06:31 5 UNIT Insulin Human Regular (humuLIN R 100 UNIT/ML 3ML) 8 unit TIDAC SQ 03/20/24 07:30 04/19/24 07:29 03/20/24 06:38 3 UNIT Insulin Human Regular (humuLIN R 100 UNIT/ML 3ML) INSULIN SLIDING SCAL... ACHS SQ 03/17/24 21:00 03/18/24 19:50 DC 03/18/24 17:18 5 UNIT Insulin Human Regular (humuLIN R 100 UNIT/ML 3ML) INSULIN SLIDING SCAL... ACHS SQ 03/18/24 21:00 04/17/24 20:59 03/20/24 06:20 8 UNIT Losartan Potassium (CozAAR 25MG TAB) 25 mg BID PO 03/20/24 12:00 04/17/24 11:59 Losartan Potassium (CozAAR 25MG TAB) 25 mg DAILY PO 03/18/24 12:00 03/20/24 12:00 DC 03/20/24 08:33 25 MG Magnesium Sulfate 50 ml @ 0 mls/hr PROTOCOL IV 03/18/24 12:00 03/18/24 11:50 DC Magnesium Sulfate 50 ml @ 0 mls/hr PROTOCOL IV 03/19/24 12:00 04/18/24 11:59 03/20/24 08:33 25 MLS/HR Magnesium Sulfate 50 ml @ 0 mls/hr PROTOCOL PRN IV OTHER [SEE ORDER COMMENTS] 03/17/24 20:30 03/19/24 19:09 DC 03/19/24 09:50 25 MLS/HR Memantine (NAmenDA 5 MG TAB) 5 mg BID PO 03/18/24 21:00 04/17/24 20:59 03/20/24 08:33 5 MG Mupirocin (Bactroban Oint) 1 APPL ONCE TP 03/18/24 19:00 03/19/24 19:09 DC 03/19/24 17:52 1 APPL Ondansetron HCl (zoFRAN 4MG INJ) 4 mg Q6H PRN IV NAUSEA/VOMITING 03/17/24 20:30 04/16/24 20:29 Potassium Chloride 100 ml @ 100 mls/hr AD PRN IV POTASSIUM PROTOCOL 03/17/24 20:30 04/16/24 20:29 Potassium Chloride (K-Dur 10meq Sr Tab) 10 meq AD PRN PO POTASSIUM PROTOCOL 03/18/24 11:30 04/16/24 20:29 03/19/24 09:50 10 MEQ Potassium Chloride (K-Dur/Klor-Con 20meq) 10 meq AD PRN PO POTASSIUM PROTOCOL 03/17/24 20:30 03/18/24 11:17 DC 03/18/24 06:42 10 MEQ Potassium Chloride (KCl 10% Elixir 20meq/15ml) 10 meq AD PRN PO POTASSIUM PROTOCOL 03/17/24 20:30 04/16/24 20:29 Vancomycin HCl 250 ml @ 125 mls/hr Q24H IV 03/18/24 21:00 03/28/24 20:59 03/19/24 21:17 125 MLS/HR Vancomycin HCl (Vancomycin Protocol) 1 each AD IV 03/17/24 21:00 03/31/24 20:59 DIAGNOSTICS / RADIOLOGY: [ ] ASSESSMENT: Hypokalemia, POA Hyponatremia, POA Hypomagnesemia, POA Moderate protein caloric malnutrition Left foot ulcer with cellulitis POA Hyperglycemia due to uncontrolled diabetes, A1c greater than 15.5 POA Hyperlipidemia POA Pseudohyponatremia due to hyperglycemia POA Peripheral arterial disease POA History of severe aortic stenosis POA History of Dementia with agitation POA PLAN: Continue admission to the medical-surgical floor Continue with consistent carb and heart healthy diet Continue with IV antibiotics with Rocephin and vancomycin Dr. Hernandez has been consulted, we will follow his wound care recommendations Continue with supportive care: GI and DVT prophylaxis with famotidine and Lovenox We will replete her electrolytes as necessary We will repeat labs tomorrow Home medication has been reviewed and reconciled Continue with blood sugar management with a.c. and HS glucometer, continue with Lantus 20 units at HS, regular 8 units tidac, and insulin sliding scale. Case discussed with attending physician and came up with above treatment and plan of care. Code Status: Full Resuscitation Disposition: TBD Prognosis: Guarded NEURO: Minimize central acting medications as possible. Fall Precautions. Well lighted room through the day and minimize interruptions through the night to prevent acute delirium. PULMONARY: Supplemental 02 as needed BiPAP as necessary, for respiratory distress Titrate Fio2 to keep Spo2 > or = 90% DuoNebs and CPT as needed IS hourly while awake for pulmonary hygiene Out of bed to chair as tolerated VAP Bundle Maintain aspiration precautions at all times CARDIOVASCULAR: Follow hemodynamics. Vital signs per facility protocol GI & NUTRITION: Continue nutritional support Aspirations precautions Prokinetic agents and laxatives as needed KIDNEYS & ELECTROLYTES: Strict monitoring of intake and output Daily weights Avoid nephrotoxic agents Monitor electrolytes and replace as needed Goal urine output of 30mL/hr or 0.5mL/kg/hr Medications to be dosed according to renal function. Avoid contrast if possible ENDOCRINE: Maintain blood glucose between 100-180 at all times. Insulin sliding scale for blood glucose management Hypoglycemia and hyperglycemia protocol in place INFECTIOUS DISEASE: Trend temperature, WBC and procalcitonin level Follow cultures, deescalate antibiotics as soon as possible. Panculture if new onset fever HEMATOLOGY & COAGULATION: Monitor H&H. Keep Hgb > 7 Transfuse 1 unit of PRBC for Hgb < 7 Transfuse 1 pack of platelets of platelets < 20, 000 Watch for any signs and symptoms of bleeding SKIN: Pressure ulcer prevention per facility protocol Specialty mattress as needed ] ATTESTATION BY PHYSICIAN I have seen and examined the patient. I reviewed the documentation, medical decision making, and treatment plan as noted by the mid-level provider above. I agree with the findings and plan of care. ALVERTO MACIAS MD, [facility] Mar 20, 2024 12:25
[2024-03-20] MEDS: VANCOMYCIN 750MG VIAL IVPB SCH (22:37)
--- NOTE | 2024-03-20 23:02 | PN ---
endocrinology progress note dos:03/20/24 subjective: she use metformin 1000 mg bid, glipizide 10 mg daily, pioglitazone 15 mg daily, and repaglinide 1 mg daily. hba1v >15.5% glucose was running greater than 300 mg/dl but improving now. REVIEW OF SYSTEMS CONSTITUTIONAL: Denies fevers, chills, or night sweats. No unintentional weight loss reported. NEUROLOGICAL: Denies headache, amaurosis fugax, motor weakness, sensory deficit, vertigo/spinning sensation, gait abnormalities, or tremors. ENT: No hearing loss, otalgia, otorrhea, rhinitis, rhinorrhea, hoarseness, or sore throat. CARDIOVASCULAR: Denies any exertional angina, dyspnea on exertion, orthopnea, paroxysmal nocturnal dyspnea, palpitations, life-threatening arrhythmias, claudication. PULMONARY: Denies any shortness of breath, cough, phlegm/sputum, hemoptysis, pleuritic chest pain. SLEEP: Denies morning headaches, daytime somnolence or napping. Denies difficulty falling asleep, staying asleep, waking from sleep. Denies knowledge of snoring. GASTROINTESTINAL: Denies any type of dysphagia to either liquids or solids. Denies nausea, vomiting, pyrosis, early satiety, abdominal pain, diarrhea, constipation, or changes in stool consistency or caliber. Denies coffee-ground emesis, hematemesis, hematochezia, or melanotic stools. GENITOURINARY: Denies frequency, urgency, nocturia, hematuria or incontinence (Storage/Irritative symptoms.) Low urinary stream, straining to void, urinary intermittency or hesitancy, splitting of the voiding stream, terminal dribbling. ENDOCRINOLOGIC: Denies polyuria, polydipsia, polyphagia or heat/cold intolerances. HEMATOLOGIC: Denies thrombophilia/previous clots, or coagulopathy/bleeding disorders. ONCOLOGIC: Denies personal history of malignancy. DERMATOLOGIC: Denies rashes or pruritus. PSYCHIATRIC: Denies any suicidal or homicidal ideation. Denies hallucinations. PAST MEDICAL HISTORY: [ diabetes, hyperlipidemia, severe aortic stenosis, peripheral arterial disease and dementia with agitation ] PAST SURGICAL HISTORY: [Patient denies ] PAST SOCIAL HISTORY: [ Patient denies alcohol tobacco and recreational drug use. Patient lives with .] FAMILY HISTORY: [Noncontributory ] Coded Allergies: No Known Allergies (Unverified Allergy, Unknown, 05/25/21) ASSESSMENT: Hyperglycemia due to uncontrolled diabetes POA she uses metformin 1000 mg bid, glipizide 10 mg daily, pioglitazone 15 mg daily, and repaglinide 1 mg daily. hba1v >15.5% glucose was running greater than 300 mg/dl but improving now. Left foot ulcer with cellulitis POA Hyperlipidemia POA Pseudohyponatremia due to hyperglycemia POA Peripheral arterial disease POA History of severe aortic stenosis POA History of Dementia with agitation POA PLAN: increase lantus to 25 units daily increase regular insulin to 10 units tid before meals continue medium dose ssi monitor glucose qx6 hourly. patient will need insulin lantus 25 units daily and resume diabetic meds at discharge. discontinue glipizide as she is already on repaglinide. Vitals/Labs Vital Signs Date Time Temp Pulse Resp B/P (MAP) Pulse Ox O2 Delivery O2 Flow Rate FiO2 03/20/24 20:18 98.2 80 16 122/74 97 Room Air 03/20/24 20:04 0 21 Laboratory Tests 03/20/24 05:59 Medications Current Medications Vancomycin HCl 1 gm ONCE ONCE IV Last administered on 03/17/24at 19:50; Start 03/17/24 at 19:00; Stop 03/17/24 at 19:01; Status DC Ceftriaxone Sodium 1 gm ONCE ONCE IVPB Last administered on 03/17/24at 19:04; Start 03/17/24 at 19:00; Stop 03/17/24 at 19:01; Status DC Insulin Human Regular 5 unit ONCE ONCE IV Last administered on 03/17/24at 19:51; Start 03/17/24 at 19:00; Stop 03/17/24 at 19:01; Status DC Lactated Ringer's 1,000 ml @ 0 mls/hr ONCE ONCE IV Last administered on 03/17/24at 19:51; Start 03/17/24 at 19:00; Stop 03/17/24 at 19:01; Status DC Acetaminophen 650 mg Q6H PRN PO; Start 03/17/24 at 20:30; Stop 04/16/24 at 20:29 Acetaminophen 650 mg Q4H PRN PO Last administered on 03/20/24at 20:23; Start 03/17/24 at 20:30; Stop 04/16/24 at 20:29 Ondansetron HCl 4 mg Q6H PRN IV; Start 03/17/24 at 20:30; Stop 04/16/24 at 20:29 Famotidine 20 mg Q24H PO Last administered on 03/20/24at 20:03; Start 03/17/24 at 21:00; Stop 04/16/24 at 20:59 Vancomycin HCl 250 ml @ 125 mls/hr ONCE ONCE IV; Start 03/17/24 at 20:30; Stop 03/17/24 at 20:48; Status DC Ceftriaxone Sodium 1 gm/ Sodium Chloride 50 ml @ 100 mls/hr Q24H IV; Start 03/17/24 at 20:30; Stop 03/17/24 at 20:31; Status DC Enoxaparin Sodium 30 mg DAILY SQ Last administered on 03/20/24at 08:33; Start 03/18/24 at 09:00; Stop 04/17/24 at 08:59 Insulin Human Regular INSULIN SLIDING SCAL... ACHS SQ Last administered on 03/18/24at 17:18; Start 03/17/24 at 21:00; Stop 03/18/24 at 19:50; Status DC Dextrose 50 ml AD PRN IV; Start 03/17/24 at 20:30; Stop 04/16/24 at 20:29 Glucagon 1 mg AD PRN IM; Start 03/17/24 at 20:30; Stop 04/16/24 at 20:29 Potassium Chloride 100 ml @ 100 mls/hr AD PRN IV; Start 03/17/24 at 20:30; Stop 04/16/24 at 20:29 Potassium Chloride 10 meq AD PRN PO; Start 03/17/24 at 20:30; Stop 04/16/24 at 20:29 Potassium Chloride 10 meq AD PRN PO Last administered on 03/18/24at 06:42; Start 03/17/24 at 20:30; Stop 03/18/24 at 11:17; Status DC Magnesium Sulfate 50 ml @ 0 mls/hr PROTOCOL PRN IV Last administered on 03/19/24at 09:50; Start 03/17/24 at 20:30; Stop 03/19/24 at 19:09; Status DC Ceftriaxone Sodium 1 gm Q24H IVPB Last administered on 03/20/24at 20:04; Start 03/18/24 at 20:30; Stop 03/28/24 at 20:29 Vancomycin HCl 250 ml @ 125 mls/hr Q24H IV Last administered on 03/19/24at 21:17; Start 03/18/24 at 21:00; Stop 03/20/24 at 20:56; Status DC Vancomycin HCl 1 each AD IV; Start 03/17/24 at 21:00; Stop 03/31/24 at 20:59 Amlodipine Besylate 5 mg DAILY PO Last administered on 03/20/24at 08:32; Start 03/18/24 at 11:30; Stop 04/17/24 at 11:29 Hydralazine HCl 5 mg Q6H PRN IV; Start 03/18/24 at 11:30; Stop 04/17/24 at 11:29 Potassium Chloride 10 meq AD PRN PO Last administered on 03/19/24at 09:50; Start 03/18/24 at 11:30; Stop 04/16/24 at 20:29 Atorvastatin Calcium 40 mg HS PO Last administered on 03/20/24at 20:03; Start 03/18/24 at 21:00; Stop 04/17/24 at 20:59 Losartan Potassium 25 mg DAILY PO Last administered on 03/20/24at 08:33; Start 03/18/24 at 12:00; Stop 03/20/24 at 12:00; Status DC Memantine 5 mg BID PO Last administered on 03/20/24at 20:03; Start 03/18/24 at 21:00; Stop 04/17/24 at 20:59 Glipizide 10 mg DAILYBKFST PO Last administered on 03/20/24at 08:33; Start 03/19/24 at 08:00; Stop 04/18/24 at 07:59 Insulin Glargine 10 units HS SQ Last administered on 03/18/24at 21:06; Start 03/18/24 at 21:00; Stop 03/19/24 at 07:00; Status DC Magnesium Sulfate 50 ml @ 0 mls/hr PROTOCOL IV; Start 03/18/24 at 12:00; Stop 03/18/24 at 11:50; Status DC Mupirocin 1 APPL ONCE TP Last administered on 03/19/24at 17:52; Start 03/18/24 at 19:00; Stop 03/19/24 at 19:09; Status DC Insulin Human Regular INSULIN SLIDING SCAL... ACHS SQ Last administered on 03/20/24at 20:27; Start 03/18/24 at 21:00; Stop 04/17/24 at 20:59 Insulin Glargine 20 units DAILY SQ Last administered on 03/20/24at 08:32; Start 03/19/24 at 09:00; Stop 04/17/24 at 20:59 Insulin Human Regular 5 unit TIDAC SQ Last administered on 03/20/24at 06:31; Start 03/19/24 at 07:30; Stop 03/20/24 at 06:33; Status DC Magnesium Sulfate 50 ml @ 0 mls/hr PROTOCOL IV Last administered on 03/20/24at 08:33; Start 03/19/24 at 12:00; Stop 04/18/24 at 11:59 Insulin Human Regular 8 unit TIDAC SQ Last administered on 03/20/24at 16:39; Start 03/20/24 at 07:30; Stop 03/20/24 at 22:56; Status DC Losartan Potassium 25 mg BID PO Last administered on 03/20/24at 20:04; Start 03/20/24 at 12:00; Stop 04/17/24 at 11:59 Vancomycin HCl 750 mg Q12H IVPB Last administered on 03/20/24at 22:37; Start 03/20/24 at 21:00; Stop 03/30/24 at 20:59 Insulin Human Regular 10 unit TIDAC SQ; Start 03/21/24 at 07:30; Stop 04/20/24 at 07:29; Status MILY BISHOP MD Mar 20, 2024 23:02
[2024-03-21] VITALS (8 sets, daily range): BP systolic 124–151; BP diastolic 62–78; PULSE 67–79; RESP 16–20; TEMP 97.6–98.7; O2SAT 98–99
[2024-03-21 04:34] LABS: BASOPHILS # (AUTO) 0.02 K/uL (0.00-0.20); BASOPHILS % (AUTO) 0.4 % (0.0-5.0); EOSINOPHILS # (AUTO) 0.06 K/uL (0.00-0.70); EOSINOPHILS % (AUTO) 1.3 % (0.0-8.0); HEMATOCRIT 34.3 % (36-48); IMMATURE GRANULOCYTE ABSOLUTE 0.01 K/uL (0-1); LYMPHOCYTES # (AUTO) 1.9 K/uL (1.0-4.8); MEAN CORPUSCULAR HEMOGLOBIN 35.4 pg (27.0-33.0); MEAN CORPUSCULAR HGB CONC 34.4 g/dL (32.0-36.0); MONOCYTES # (AUTO) 0.6 K/uL (0.1-1.0); MONOCYTES % (AUTO) 12.1 % (3.0-13.0); PLATELET COUNT (AUTO) 231 K/uL (130-400); RED BLOOD CELL COUNT(AUTO) 3.33 MIL/uL (4.00-5.50); RED CELL DISTRIBUTION WIDTH 12.3 % (11.0-15.5); WHITE BLOOD COUNT (AUTO) 4.6 K/uL (4.8-10.8)
[2024-03-21 04:45] LABS: CREATININE 0.7 mg/dL (0.5-1.0); MAGNESIUM 1.5 mg/dL (1.80-2.40); POTASSIUM 4.3 mmol/L (3.5-5.1)
[2024-03-21] MEDS: INSULIN humuLIN R 100 UNIT/ML 3ML SQ SCH (06:31)
[2024-03-21] MEDS: INSULIN GLARgine 100 UNITS/ML 10 ML VIAL SQ SCH (10:16)
--- NOTE | 2024-03-21 11:33 | PN ---
[facility] PROGRESS NOTE Date of Service: Mar 21, 2024 Time of Service: 11:24 SUBJECTIVE: [83-year-old female admitted due to nonhealing left ankle wound. Apparently patient had a fall at home and wound slowly healing. She presented to the emergency department due to increased swelling and redness on the left ankle wound. Podiatry has been consulted. Recommendation is to continue with local wound care with mupirocin and Vaseline daily. Patient was evaluated in room 310, patient is alert and oriented x3. Blood sugar reviewed, ranging 173-249, currently at 133, Dr. Roman adjusted Lantus to 30 units today, we will need to continue to monitor blood sugar. Adjustment as needed. Explained to the patient she needs to be on insulin and teaching needed by nurses on how to check blood sugar and insulin injection necessary prior to discharge. This patient lives with her at home and will probably benefit with home health for blood sugar monitoring. REVIEW OF SYSTEMS CONSTITUTIONAL: Denies fevers, chills, or night sweats. No unintentional weight loss reported. NEUROLOGICAL: Denies headache, amaurosis fugax, motor weakness, sensory deficit, vertigo/spinning sensation, gait abnormalities, or tremors. ENT: No hearing loss, otalgia, otorrhea, rhinitis, rhinorrhea, hoarseness, or sore throat. CARDIOVASCULAR: Denies any exertional angina, dyspnea on exertion, orthopnea, paroxysmal nocturnal dyspnea, palpitations, life-threatening arrhythmias, claudication. PULMONARY: Denies any shortness of breath, cough, phlegm/sputum, hemoptysis, pleuritic chest pain. SLEEP: Denies morning headaches, daytime somnolence or napping. Denies difficulty falling asleep, staying asleep, waking from sleep. Denies knowledge of snoring. GASTROINTESTINAL: Denies any type of dysphagia to either liquids or solids. Denies nausea, vomiting, pyrosis, early satiety, abdominal pain, diarrhea, constipation, or changes in stool consistency or caliber. Denies coffee-ground emesis, hematemesis, hematochezia, or melanotic stools. GENITOURINARY: Denies frequency, urgency, nocturia, hematuria or incontinence (Storage/Irritative symptoms.) Low urinary stream, straining to void, urinary intermittency or hesitancy, splitting of the voiding stream, terminal dribbling. ENDOCRINOLOGIC: Denies polyuria, polydipsia, polyphagia or heat/cold intolerances. HEMATOLOGIC: Denies thrombophilia/previous clots, or coagulopathy/bleeding disorders. ONCOLOGIC: Denies personal history of malignancy. DERMATOLOGIC: Denies rashes or pruritus. PSYCHIATRIC: Denies any suicidal or homicidal ideation. Denies hallucinations. PHYSICAL EXAM GENERAL APPEARANCE: The patient is awake, alert, and oriented, in no acute cardiopulmonary distress. NEUROLOGICAL: Cranial nerves II-XII grossly intact. Motor is 5/5 in bilateral upper and lower extremities proximal to distal. No sensory deficits. HEENT: Face is symmetric. Pupils are equal and reactive. Extraocular movements are intact. NECK: Supple. No JVD. No thyromegaly. No submental, submandibular, pre-/postauricular, occipital or supraclavicular lymphadenopathy. CHEST: Normal chest expansion. No Telemetry. LUNGS: Absence of any rales, rhonchi or any wheezing. CARDIOVASCULAR: Regular. S1 and S2 normal. No appreciable rubs, murmurs or gallops. ABDOMEN: Soft, nontender, and nondistended. There is no rebound, voluntary guarding, or rigidity. : Deferred. No Shook. EXTREMITIES: Swollen left foot with ulcer located at outer aspect of the ankle SKIN: erythema and some dark discoloration of chronic left foot ulcer Vital Signs (last 8hr) Date Time Temp Pulse Resp B/P (MAP) Pulse Ox O2 Delivery O2 Flow Rate FiO2 03/21/24 10:25 99 Room Air* 0 21 03/21/24 08:30 98.8 79 20 144/78 99 03/21/24 04:27 98.4 78 16 146/74 99 Room Air LABS: Laboratory: Test 03/21/24 11:02 03/21/24 05:18 03/21/24 04:18 03/20/24 19:50 Range/Units Whole Blood Glucose 133 H 70-110 MG/DL Bedside Glucose Comment Protocol Initiated White Blood Count 4.6 L 4.8-10.8 K/uL Red Blood Count 3.33 L 4.00-5.50 MIL/uL Hemoglobin 11.8 L 12.0-16.0 g/dL Hematocrit 34.3 L 36-48 % Mean Corpuscular Volume 103.0 H 79-99 fL Mean Corpuscular Hemoglobin 35.4 H 27.0-33.0 pg Mean Corpuscular Hemoglobin Concent 34.4 32.0-36.0 g/dL Red Cell Distribution Width 12.3 11.0-15.5 % Platelet Count 231 130-400 K/uL Mean Platelet Volume 9.1 7.5-10.5 fL Immature Granulocyte % (Auto) 0.2 0-1 % Neutrophils (%) (Auto) 44.0 40.0-77.0 % Lymphocytes (%) (Auto) 42.0 21.0-51.0 % Monocytes (%) (Auto) 12.1 3.0-13.0 % Eosinophils (%) (Auto) 1.3 0.0-8.0 % Basophils (%) (Auto) 0.4 0.0-5.0 % Neutrophils # (Auto) 2.0 1.8-7.7 K/uL Lymphocytes # (Auto) 1.9 1.0-4.8 K/uL Monocytes # (Auto) 0.6 0.1-1.0 K/uL Eosinophils # (Auto) 0.06 0.00-0.70 K/uL Basophils # (Auto) 0.02 0.00-0.20 K/uL Absolute Immature Granulocyte (auto 0.01 0-1 K/uL Nucleated Red Blood Cells 0.0 0.0-0.19 % Sodium Level 138 136-145 mmol/L Potassium Level 4.3 3.5-5.1 mmol/L Chloride Level 105 101-111 mmol/L Carbon Dioxide Level 28 21-32 mmol/L Blood Urea Nitrogen 11 7-18 mg/dL Creatinine 0.7 0.5-1.0 mg/dL Glomerular Filtration Rate Calc 85 >90 mL/min Random Glucose 243 H 70-105 mg/dL Total Calcium 8.6 8.5-10.1 mg/dL Magnesium Level 1.50 L 1.80-2.40 mg/dL Vancomycin Level Trough 6.6 L 10.0-20.0 UG/ML Current Medications Medications (Trade) Dose Ordered Sig/Bebeto Route PRN Reason Start Time Stop Time Status Last Admin Dose Admin Acetaminophen (TYLenol 325MG TAB) 650 mg Q4H PRN PO MILD PAIN (1-3) 03/17/24 20:30 04/16/24 20:29 03/21/24 10:18 650 MG Acetaminophen (TYLenol 325MG TAB) 650 mg Q6H PRN PO TEMPERATURE GREATER THAN 101.5 03/17/24 20:30 04/16/24 20:29 Amlodipine Besylate (NorvASC 5MG TAB) 5 mg DAILY PO 03/18/24 11:30 04/17/24 11:29 03/21/24 10:14 5 MG Atorvastatin Calcium (LIPItor 40MG) 40 mg HS PO 03/18/24 21:00 04/17/24 20:59 03/20/24 20:03 40 MG Ceftriaxone Sodium 1 gm/ Sodium Chloride 50 ml @ 100 mls/hr Q24H IV 03/17/24 20:30 03/17/24 20:31 DC Ceftriaxone Sodium (ROCEphine 1G INJ) 1 gm Q24H IVPB 03/18/24 20:30 03/28/24 20:29 03/20/24 20:04 1 GM Dextrose (D50w) 50 ml AD PRN IV HYPOGLYCEMIA PROTOCOL 03/17/24 20:30 04/16/24 20:29 Enoxaparin Sodium (Lovenox) 30 mg DAILY SQ 03/18/24 09:00 04/17/24 08:59 03/21/24 10:14 30 MG Famotidine (Pepcid 20mg Tab) 20 mg Q24H PO 03/17/24 21:00 04/16/24 20:59 03/20/24 20:03 20 MG Glipizide (GLUCOtrol XL 10MG TAB) 10 mg DAILYBKFST PO 03/19/24 08:00 03/21/24 06:56 DC 03/20/24 08:33 10 MG Glucagon (Glucagon 1mg Kit) 1 mg AD PRN IM HYPOGLYCEMIA PROTOCOL 03/17/24 20:30 04/16/24 20:29 Hydralazine HCl (APRESOLine 20MG INJ) 5 mg Q6H PRN IV ADMINISTER FOR SBP > 160 03/18/24 11:30 04/17/24 11:29 Insulin Glargine (LANtus 100 UNITS/ML 10 ML VIAL) 10 units HS SQ 03/18/24 21:00 03/19/24 07:00 DC 03/18/24 21:06 10 UNITS Insulin Glargine (LANtus 100 UNITS/ML 10 ML VIAL) 20 units DAILY SQ 03/19/24 09:00 03/21/24 06:56 DC 03/20/24 08:32 20 UNITS Insulin Glargine (LANtus 100 UNITS/ML 10 ML VIAL) 30 units DAILY SQ 03/21/24 09:00 04/20/24 08:59 03/21/24 10:16 30 UNITS Insulin Human Regular (humuLIN R 100 UNIT/ML 3ML) 5 unit TIDAC SQ 03/19/24 07:30 03/20/24 06:33 DC 03/20/24 06:31 5 UNIT Insulin Human Regular (humuLIN R 100 UNIT/ML 3ML) 8 unit TIDAC SQ 03/20/24 07:30 03/20/24 22:56 DC 03/20/24 16:39 8 UNIT Insulin Human Regular (humuLIN R 100 UNIT/ML 3ML) 10 unit TIDAC SQ 03/21/24 07:30 04/20/24 07:29 03/21/24 06:31 10 UNIT Insulin Human Regular (humuLIN R 100 UNIT/ML 3ML) INSULIN SLIDING SCAL... ACHS SQ 03/17/24 21:00 03/18/24 19:50 DC 03/18/24 17:18 5 UNIT Insulin Human Regular (humuLIN R 100 UNIT/ML 3ML) INSULIN SLIDING SCAL... ACHS SQ 03/18/24 21:00 04/17/24 20:59 03/21/24 06:09 6 UNIT Losartan Potassium (CozAAR 25MG TAB) 25 mg BID PO 03/20/24 12:00 04/17/24 11:59 03/21/24 10:14 25 MG Losartan Potassium (CozAAR 25MG TAB) 25 mg DAILY PO 03/18/24 12:00 03/20/24 12:00 DC 03/20/24 08:33 25 MG Magnesium Sulfate 50 ml @ 0 mls/hr PROTOCOL IV 03/18/24 12:00 03/18/24 11:50 DC Magnesium Sulfate 50 ml @ 0 mls/hr PROTOCOL IV 03/19/24 12:00 04/18/24 11:59 03/21/24 05:16 25 MLS/HR Magnesium Sulfate 50 ml @ 0 mls/hr PROTOCOL PRN IV OTHER [SEE ORDER COMMENTS] 03/17/24 20:30 03/19/24 19:09 DC 03/19/24 09:50 25 MLS/HR Memantine (NAmenDA 5 MG TAB) 5 mg BID PO 03/18/24 21:00 04/17/24 20:59 03/21/24 10:14 5 MG Mupirocin (Bactroban Oint) 1 APPL ONCE TP 03/18/24 19:00 03/19/24 19:09 DC 03/19/24 17:52 1 APPL Ondansetron HCl (zoFRAN 4MG INJ) 4 mg Q6H PRN IV NAUSEA/VOMITING 03/17/24 20:30 04/16/24 20:29 Potassium Chloride 100 ml @ 100 mls/hr AD PRN IV POTASSIUM PROTOCOL 03/17/24 20:30 04/16/24 20:29 Potassium Chloride (K-Dur 10meq Sr Tab) 10 meq AD PRN PO POTASSIUM PROTOCOL 03/18/24 11:30 04/16/24 20:29 03/19/24 09:50 10 MEQ Potassium Chloride (K-Dur/Klor-Con 20meq) 10 meq AD PRN PO POTASSIUM PROTOCOL 03/17/24 20:30 03/18/24 11:17 DC 03/18/24 06:42 10 MEQ Potassium Chloride (KCl 10% Elixir 20meq/15ml) 10 meq AD PRN PO POTASSIUM PROTOCOL 03/17/24 20:30 04/16/24 20:29 Vancomycin HCl 250 ml @ 125 mls/hr Q24H IV 03/18/24 21:00 03/20/24 20:56 DC 03/19/24 21:17 125 MLS/HR Vancomycin HCl (Vancomycin 750mg) 750 mg Q12H IVPB 03/20/24 21:00 03/30/24 20:59 03/21/24 10:14 750 MG Vancomycin HCl (Vancomycin Protocol) 1 each AD IV 03/17/24 21:00 03/31/24 20:59 DIAGNOSTICS / RADIOLOGY: [ ] ASSESSMENT: Hypokalemia, POA Hyponatremia, POA Hypomagnesemia, POA Moderate protein caloric malnutrition Left foot ulcer with cellulitis POA Hyperglycemia due to uncontrolled diabetes, A1c greater than 15.5 POA Hyperlipidemia POA Pseudohyponatremia due to hyperglycemia POA Peripheral arterial disease POA History of severe aortic stenosis POA History of Dementia with agitation POA PLAN: Continue admission to the medical-surgical floor Continue with consistent carb and heart healthy diet Continue with IV antibiotics with Rocephin and vancomycin Dr. Hernandez has been consulted, we will follow his wound care recommendations- local wound care Continue with supportive care: GI and DVT prophylaxis with famotidine and Lovenox We will replete her electrolytes as necessary We will repeat labs tomorrow Home medication has been reviewed and reconciled Continue with blood sugar management with a.cHolger and HS glucometer Appreciate recommendations with Dr. Long, adjusted insulin today to Lantus 30 units, insulin regular 10 units TIDac, home medication has been adjusted by Dr. Roman, will follow his rec's - dc glipizide Nursing needs to educate patient on how to check blood sugar and administration of insulin. She will be discharged with insulin Case discussed with attending physician and came up with above treatment and plan of care. Code Status: Full Resuscitation Disposition: TBD Prognosis: Guarded NEURO: Minimize central acting medications as possible. Fall Precautions. Well lighted room through the day and minimize interruptions through the night to prevent acute delirium. PULMONARY: Supplemental 02 as needed BiPAP as necessary, for respiratory distress Titrate Fio2 to keep Spo2 > or = 90% DuoNebs and CPT as needed IS hourly while awake for pulmonary hygiene Out of bed to chair as tolerated VAP Bundle Maintain aspiration precautions at all times CARDIOVASCULAR: Follow hemodynamics. Vital signs per facility protocol GI & NUTRITION: Continue nutritional support Aspirations precautions Prokinetic agents and laxatives as needed KIDNEYS & ELECTROLYTES: Strict monitoring of intake and output Daily weights Avoid nephrotoxic agents Monitor electrolytes and replace as needed Goal urine output of 30mL/hr or 0.5mL/kg/hr Medications to be dosed according to renal function. Avoid contrast if possible ENDOCRINE: Maintain blood glucose between 100-180 at all times. Insulin sliding scale for blood glucose management Hypoglycemia and hyperglycemia protocol in place INFECTIOUS DISEASE: Trend temperature, WBC and procalcitonin level Follow cultures, deescalate antibiotics as soon as possible. Panculture if new onset fever HEMATOLOGY & COAGULATION: Monitor H&H. Keep Hgb > 7 Transfuse 1 unit of PRBC for Hgb < 7 Transfuse 1 pack of platelets of platelets < 20, 000 Watch for any signs and symptoms of bleeding SKIN: Pressure ulcer prevention per facility protocol Specialty mattress as needed ] ATTESTATION BY PHYSICIAN I have seen and examined the patient. I reviewed the documentation, medical decision making, and treatment plan as noted by the mid-level provider above. I agree with the findings and plan of care. ALVERTO MACIAS MD, [facility] B [facility] Mar 21, 2024 11:33
[2024-03-21] MEDS: MAGNESIUM 2GM PREMIX 50ML 50 ML IV SCH (15:20)
--- NOTE | 2024-03-21 17:56 | PN ---
PROGRESS NOTE Date of Service: Mar 19, 2024 Time of Service: 17:42 SUBJECTIVE: HF seen for follow up on pressure ulcer left ankle lateral malleoli. no new complains REVIEW OF SYSTEMS CONSTITUTIONAL: Denies fever, chills, or fatigue. HEAD/FACE: No signs of trauma. EENT: Denies eye pain, blurred vision, double vision, or light sensitivity. RESPIRATORY: Denies shortness of breath, cough, wheezing CARDIOVASCULAR: Denies chest pain, palpitation, syncope GASTROINTESTINAL/ABDOMINAL: Denies abdominal pain, constipation, diarrhea, nausea or vomiting GENITOURINARY: Denies dysuria or hematuria. MUSCULOSKELETAL: lateral ankle pain INTEGUMENTARY: dry ulcer lateral ankle NEUROLOGICAL/PSYCH: Denies anxiety, depression, heat or cold intolerance. PHYSICAL EXAM EYES: Anicteric. Pupils equal and reactive. HENT: No oral thrush seen, moist Oral mucosa NECK: Supple, no JVD or thyromegaly. LUNGS: Good air entry. No rales, no rhonchi. CARDIOVASCULAR: S1, S2 regular. No murmur heard. Palpable dorsalis pedis artery pulse. ABDOMEN: Soft, non tender, bowel sounds present, no organomegaly CENTRAL NERVOUS SYSTEM: Awake, alert, oriented x 3. No focal deficits. SKIN: Unstageable ulcer lateral malleoli edema erythema and tenderness LYMPHATICS: No peripheral lymphadenopathy MUSCULOSKELETAL: No joint swelling, erythema or tenderness. EXTREMITIES: No cyanosis or clubbing BACK: No deformity, no pressure ulcer. GENITOURINARY: No dysuria or hematuria Vital Signs (last 8hr) Date Time Temp Pulse Resp B/P (MAP) Pulse Ox O2 Delivery O2 Flow Rate FiO2 03/21/24 16:05 98.6 73 19 131/74 96 03/21/24 11:55 98.1 75 19 124/72 97 03/21/24 10:25 99 Room Air* 0 21 LABS: Laboratory: Test 03/21/24 15:22 03/21/24 12:45 03/21/24 05:18 03/21/24 04:18 Range/Units Whole Blood Glucose 136 H 70-110 MG/DL Magnesium Level 1.70 L 1.80-2.40 mg/dL Bedside Glucose Comment Protocol Initiated White Blood Count 4.6 L 4.8-10.8 K/uL Red Blood Count 3.33 L 4.00-5.50 MIL/uL Hemoglobin 11.8 L 12.0-16.0 g/dL Hematocrit 34.3 L 36-48 % Mean Corpuscular Volume 103.0 H 79-99 fL Mean Corpuscular Hemoglobin 35.4 H 27.0-33.0 pg Mean Corpuscular Hemoglobin Concent 34.4 32.0-36.0 g/dL Red Cell Distribution Width 12.3 11.0-15.5 % Platelet Count 231 130-400 K/uL Mean Platelet Volume 9.1 7.5-10.5 fL Immature Granulocyte % (Auto) 0.2 0-1 % Neutrophils (%) (Auto) 44.0 40.0-77.0 % Lymphocytes (%) (Auto) 42.0 21.0-51.0 % Monocytes (%) (Auto) 12.1 3.0-13.0 % Eosinophils (%) (Auto) 1.3 0.0-8.0 % Basophils (%) (Auto) 0.4 0.0-5.0 % Neutrophils # (Auto) 2.0 1.8-7.7 K/uL Lymphocytes # (Auto) 1.9 1.0-4.8 K/uL Monocytes # (Auto) 0.6 0.1-1.0 K/uL Eosinophils # (Auto) 0.06 0.00-0.70 K/uL Basophils # (Auto) 0.02 0.00-0.20 K/uL Absolute Immature Granulocyte (auto 0.01 0-1 K/uL Nucleated Red Blood Cells 0.0 0.0-0.19 % Sodium Level 138 136-145 mmol/L Potassium Level 4.3 3.5-5.1 mmol/L Chloride Level 105 101-111 mmol/L Carbon Dioxide Level 28 21-32 mmol/L Blood Urea Nitrogen 11 7-18 mg/dL Creatinine 0.7 0.5-1.0 mg/dL Glomerular Filtration Rate Calc 85 >90 mL/min Random Glucose 243 H 70-105 mg/dL Total Calcium 8.6 8.5-10.1 mg/dL Test 03/20/24 19:50 Range/Units Vancomycin Level Trough 6.6 L 10.0-20.0 UG/ML DIAGNOSTICS / RADIOLOGY: Foot x ray No fractures or dislocation hardware on foot from bunion surgery Ankle x rays unremarkable ASSESSMENT: Ulcer lateral malleoli Unstageable Trauma history to lateral ankle PLAN: Follow up as outpatient at the [facility] Healing [place] [facility] Continue IV antibiotics Local wound care Mupirocin Vaseline gauze 4x4 kerlix daily to left ankle. Tylenol for pain Q 4 hrs PRN. ROBY MCGRATH DPM Mar 21, 2024 17:56
[2024-03-22 03:47] VITALS: BP 137/70; PULSE 67; RESP 20; TEMP 97.3
[2024-03-22 04:38] LABS: HEMATOCRIT 34.6 % (36-48); MEAN CORPUSCULAR HEMOGLOBIN 35.6 pg (27.0-33.0); MEAN CORPUSCULAR HGB CONC 34.4 g/dL (32.0-36.0); MEAN CORPUSCULAR VOLUME 103.6 fL (79-99); RED BLOOD CELL COUNT(AUTO) 3.34 MIL/uL (4.00-5.50); RED CELL DISTRIBUTION WIDTH 12.5 % (11.0-15.5); WHITE BLOOD COUNT (AUTO) 4.9 K/uL (4.8-10.8)
[2024-03-22 05:12] LABS: ALBUMIN 2.6 g/dL (3.5-5.0); BILIRUBIN,TOTAL 0.3 mg/dL (0.2-1.0); CREATININE 0.7 mg/dL (0.5-1.0); MAGNESIUM 1.7 mg/dL (1.80-2.40); POTASSIUM 4.1 mmol/L (3.5-5.1)
[2024-03-22 08:00] VITALS: BP 140/75; PULSE 68; RESP 18; TEMP 97.6
[2024-03-22] MEDS: INSULIN humuLIN R 100 UNIT/ML 3ML SQ SCH (08:03)
[2024-03-22 08:04] VITALS: O2SAT 97
--- NOTE | 2024-03-22 10:54 | NUR ---
NEW CONSULT FOR DR DEMAR DUMAS IS AWARE. PLAN OF CARE ON GOING. Addendum: 03/22/24 at 1529 by MAE ROCA LVN LVN INCORRECT PATIENT
[2024-03-22 12:00] VITALS: BP 136/70; PULSE 68; RESP 18; TEMP 97.9
[2024-03-22] MEDS ORDERED: MAGNESIUM 2GM PREMIX 50ML 50 ML IV SCH ×2 (12:30→15:30)
[2024-03-22] MEDS ORDERED: CEFU500T67 PO (15:31)
[2024-03-22] MEDS ORDERED: AMLO5TAB4 PO (15:31)
[2024-03-22] MEDS ORDERED: INSU100V3 SQ (15:31)
[2024-03-22] MEDS ORDERED: FAMO20TA8 PO (15:31)
[2024-03-22] MEDS ORDERED: INSLAN SQ (15:31)
[2024-03-22] MEDS ORDERED: LOSA-417 PO (15:31)
[2024-03-22] MEDS ORDERED: MUPI22OI2 TP (15:33)
--- NOTE | 2024-03-22 15:42 | DS ---
Discharge Summary Hospital Course Summary: DATE OF ADMISSION:[03/17/2024] DATE OF DISCHARGE:[03/22/2024] DISPOSITION:[Home] CONDITION:[Medically stable] CONSULTANTS:[Sludge Mill Operator, railway track plant operator] FOLLOW UP APPOINTMENTS:[PCP 2 to 3 days. Repair Clerk within one week. Sludge Mill Operator within one week.] PROCEDURES:[None] IMAGING: report attached to summary MICROBIOLOGY: report attached to summary ACTIVITY:[Independent] HOME MEDICATIONS: see [facility] NEW MEDICATIONS:[Amlodipine 5 mg p.o. daily, cefuroxime 500 mg b.i.d. 10 days, famotidine 20 mg p.o. daily, glargine 30 units subQ daily, Humulin 12 units subQ t.i.d. a.c., losartan 25 mg p.o. b.i.d., mupirocin Vaseline daily] EMERGENCY INSTRUCTIONS: The patient was instructed to present to the nearest Emergency departmentr or call 911 once their symptoms will return or worsen Golf Cart Attendant(s): 83-year-old female admitted due to nonhealing left ankle wound. Apparently patient had a fall at home and wound slowly healing. She presented to the emergency department due to increased swelling and redness on the left ankle w ound. Podiatry has been consulted. Recommendation is to continue with local wound care with mupirocin and Vaseline daily. Throughout the hospitalization patient blood sugar was also high, railway track plant operator was consulted and he placed patient on glargine 30 units daily and Humulin R 12 units TI D. Per railway track plant operator recommendation continue above- stated medication and also continue all the home medications besides the glargine. All the new medications were sent to patient's pharmacy on the chart. Patient is cleared to be discharged home. Follow up with PCP in 2 to 3 days. Follow up with railway track plant operator within one week. Follow up with the basting machine operator within one week. Procedure(s): REVIEW OF SYSTEMS CONSTITUTIONAL: Denies fevers, chills, or night sweats. No unintentional weight loss reported. NEUROLOGICAL: Denies headache, amaurosis fugax, motor weakness, sensory deficit, vertigo/spinning sensation, gait abnormalities, or tremors. ENT: No hearing loss, otalgia, otorrhea, rhinitis, rhinorrhea, hoarseness, or sore throat. CARDIOVASCULAR: Denies any exertional angina, dyspnea on exertion, orthopnea, paroxysmal nocturnal dyspnea, palpitations, life-threatening arrhythmias, claudication. PULMONARY: Denies any shortness of breath, cough, phlegm/sputum, hemoptysis, pleuritic chest pain. SLEEP: Denies morning headaches, daytime somnolence or napping. Denies difficulty falling asleep, staying asleep, waking from sleep. Denies knowledge of snoring. GASTROINTESTINAL: Denies any type of dysphagia to either liquids or solids. Denies nausea, vomiting, pyrosis, early satiety, abdominal pain, diarrhea, constipation, or changes in stool consistency or caliber. Denies coffee-ground emesis, hematemesis, hematochezia, or melanotic stools. GENITOURINARY: Denies frequency, urgency, nocturia, hematuria or incontinence (Storage/Irritative symptoms.) Low urinary stream, straining to void, urinary intermittency or hesitancy, splitting of the voiding stream, terminal dribbling. ENDOCRINOLOGIC: Denies polyuria, polydipsia, polyphagia or heat/cold intolerances. HEMATOLOGIC: Denies thrombophilia/previous clots, or coagulopathy/bleeding disorders. ONCOLOGIC: Denies personal history of malignancy. DERMATOLOGIC: Denies rashes or pruritus. PSYCHIATRIC: Denies any suicidal or homicidal ideation. Denies hallucinations. Assessment/Plan: ASSESSMENT: Hypokalemia, POA Hyponatremia, POA Hypomagnesemia, POA Moderate protein caloric malnutrition Left foot ulcer with cellulitis POA Hyperglycemia due to uncontrolled diabetes, A1c greater than 15.5 POA Hyperlipidemia POA Pseudohyponatremia due to hyperglycemia POA Peripheral arterial disease POA History of severe aortic stenosis POA History of Dementia with agitation POA Home Medications: Reported Medications Memantine HCl (Memantine HCl) 5 Mg Tablet, 5 MG PO BID 03/18/24 Pioglitazone HCl (Pioglitazone HCl) 15 Mg Tablet, 15 MG PO DAILY 03/18/24 Glipizide (Glipizide) 10 Mg Tablet, 10 MG PO DAILY 03/18/24 Metformin HCl (Metformin HCl) 1,000 Mg Tablet, 1000 MG PO DAILY 03/18/24 Repaglinide (Repaglinide) 1 Mg Tablet, 1 MG PO DAILY 03/18/24 Atorvastatin Calcium (Atorvastatin Calcium) 40 Mg Tablet, 40 MG PO DAILY 03/18/24 Losartan Potassium (Losartan Potassium) 25 Mg Tablet, 25 MG PO DAILY 03/18/24 Discontinued Scripts Ondansetron (Ondansetron Odt) 4 Mg Tab.rapdis, 4 MG PO Q6HPRN, #20 TAB 0 Refills Prov:ALEXANDER BRADSHAW MD 05/25/21 Cephalexin (Keflex 250Mg Caps) 250 Mg Capsule, 250 MG PO TID for 10 Days, #30 CAP 0 Refills Prov:ALEXANDER BRADSHAW MD 05/25/21 Time spent arranging discharge: 31-60 minutes ATTESTATION BY PHYSICIAN I have seen and examined the patient. I reviewed the documentation, medical decision making, and treatment plan as noted by the mid-level provider above. I agree with the findings and plan of care. ALVERTO MACIAS MD, KATARZYNA B APRN Mar 22, 2024 15:42
[2024-03-22] MEDS: MAGNESIUM OXIDE 400 MG TABLET PO ONE (15:58)
[2024-03-22 16:00] VITALS: BP 123/64; PULSE 72; RESP 18; TEMP 97.8
--- NOTE | 2024-03-22 16:10 | NUR ---
DISCHARGE PATIENT HAS BEEN DISCHARGED HOME. PIV REMOVED, PRESSURE GAUZE AND TAPE APPLIED TO SITE. PATIENT AND BOTH VERBALIZE UNDERSTANDING OF DISCHARGE PAPERWORK. ANY NEW PRESCRIPTIONS HAVE BEEN SENT TO PATIENT'S PREFERRED PHARMACY. PATIENT AND EDUCATED ON HOW TO DO WOUND CARE AT HOME, BOTH VERBALIZE UNDERSTANDING. WOUND CARE SUPPLIED PROVIDED TO PATIENT AND . APPOINTMENT MADE FOR DR WATSON 04/07/24 @ 245PM AND WITH DR MCGRATH 03/29/24 @ 130PM. PATIENT WHEELED DOWN TO PRIVATE AUTOMOBILE ACCOMPANIED BY CAMILLE LEBLANC AND PTS .
--- NOTE | 2024-03-22 21:22 | PN ---
endocrinology progress note dos:03/22/24 subjective: she use metformin 1000 mg bid, glipizide 10 mg daily, pioglitazone 15 mg daily, and repaglinide 1 mg daily. hba1v >15.5% glucose was running greater than 200 mg/dl but improving now. REVIEW OF SYSTEMS CONSTITUTIONAL: Denies fevers, chills, or night sweats. No unintentional weight loss reported. NEUROLOGICAL: Denies headache, amaurosis fugax, motor weakness, sensory deficit, vertigo/spinning sensation, gait abnormalities, or tremors. ENT: No hearing loss, otalgia, otorrhea, rhinitis, rhinorrhea, hoarseness, or sore throat. CARDIOVASCULAR: Denies any exertional angina, dyspnea on exertion, orthopnea, paroxysmal nocturnal dyspnea, palpitations, life-threatening arrhythmias, claudication. PULMONARY: Denies any shortness of breath, cough, phlegm/sputum, hemoptysis, pleuritic chest pain. SLEEP: Denies morning headaches, daytime somnolence or napping. Denies difficulty falling asleep, staying asleep, waking from sleep. Denies knowledge of snoring. GASTROINTESTINAL: Denies any type of dysphagia to either liquids or solids. Denies nausea, vomiting, pyrosis, early satiety, abdominal pain, diarrhea, constipation, or changes in stool consistency or caliber. Denies coffee-ground emesis, hematemesis, hematochezia, or melanotic stools. GENITOURINARY: Denies frequency, urgency, nocturia, hematuria or incontinence (Storage/Irritative symptoms.) Low urinary stream, straining to void, urinary intermittency or hesitancy, splitting of the voiding stream, terminal dribbling. ENDOCRINOLOGIC: Denies polyuria, polydipsia, polyphagia or heat/cold intolerances. HEMATOLOGIC: Denies thrombophilia/previous clots, or coagulopathy/bleeding disorders. ONCOLOGIC: Denies personal history of malignancy. DERMATOLOGIC: Denies rashes or pruritus. PSYCHIATRIC: Denies any suicidal or homicidal ideation. Denies hallucinations. PAST MEDICAL HISTORY: [ diabetes, hyperlipidemia, severe aortic stenosis, peripheral arterial disease and dementia with agitation ] PAST SURGICAL HISTORY: [Patient denies ] PAST SOCIAL HISTORY: [ Patient denies alcohol tobacco and recreational drug use. Patient lives with .] FAMILY HISTORY: [Noncontributory ] Coded Allergies: No Known Allergies (Unverified Allergy, Unknown, 05/25/21) ASSESSMENT: Hyperglycemia due to uncontrolled diabetes POA she uses metformin 1000 mg bid, glipizide 10 mg daily, pioglitazone 15 mg daily, and repaglinide 1 mg daily. hba1v >15.5% glucose was running greater than 200 mg/dl but improving now. Left foot ulcer with cellulitis POA Hyperlipidemia POA Pseudohyponatremia due to hyperglycemia POA Peripheral arterial disease POA History of severe aortic stenosis POA History of Dementia with agitation POA PLAN: increase lantus to 35 units daily increase regular insulin to 12 units tid before meals continue medium dose ssi monitor glucose qx6 hourly. patient will need insulin lantus 35 units daily and resume diabetic meds at discharge. discontinue glipizide as she is already on repaglinide. Vitals/Labs Vital Signs Date Time Temp Pulse Resp B/P (MAP) Pulse Ox O2 Delivery O2 Flow Rate FiO2 03/22/24 16:00 97.9 72 18 123/64 96 Room Air 03/22/24 08:04 0 21 Laboratory Tests 03/22/24 04:17 Medications Current Medications Vancomycin HCl 1 gm ONCE ONCE IV Last administered on 03/17/24at 19:50; Start 03/17/24 at 19:00; Stop 03/17/24 at 19:01; Status DC Ceftriaxone Sodium 1 gm ONCE ONCE IVPB Last administered on 03/17/24at 19:04; Start 03/17/24 at 19:00; Stop 03/17/24 at 19:01; Status DC Insulin Human Regular 5 unit ONCE ONCE IV Last administered on 03/17/24at 19:51; Start 03/17/24 at 19:00; Stop 03/17/24 at 19:01; Status DC Lactated Ringer's 1,000 ml @ 0 mls/hr ONCE ONCE IV Last administered on 03/17/24at 19:51; Start 03/17/24 at 19:00; Stop 03/17/24 at 19:01; Status DC Acetaminophen 650 mg Q6H PRN PO; Start 03/17/24 at 20:30; Stop 03/22/24 at 16:37; Status DC Acetaminophen 650 mg Q4H PRN PO Last administered on 03/22/24at 10:32; Start 03/17/24 at 20:30; Stop 03/22/24 at 16:37; Status DC Ondansetron HCl 4 mg Q6H PRN IV; Start 03/17/24 at 20:30; Stop 03/22/24 at 16:37; Status DC Famotidine 20 mg Q24H PO Last administered on 03/21/24at 20:03; Start 03/17/24 at 21:00; Stop 03/22/24 at 16:37; Status DC Vancomycin HCl 250 ml @ 125 mls/hr ONCE ONCE IV; Start 03/17/24 at 20:30; Stop 03/17/24 at 20:48; Status DC Ceftriaxone Sodium 1 gm/ Sodium Chloride 50 ml @ 100 mls/hr Q24H IV; Start 03/17/24 at 20:30; Stop 03/17/24 at 20:31; Status DC Enoxaparin Sodium 30 mg DAILY SQ Last administered on 03/22/24at 07:57; Start 03/18/24 at 09:00; Stop 03/22/24 at 16:37; Status DC Insulin Human Regular INSULIN SLIDING SCAL... ACHS SQ Last administered on 03/18/24at 17:18; Start 03/17/24 at 21:00; Stop 03/18/24 at 19:50; Status DC Dextrose 50 ml AD PRN IV; Start 03/17/24 at 20:30; Stop 03/22/24 at 16:37; Status DC Glucagon 1 mg AD PRN IM; Start 03/17/24 at 20:30; Stop 03/22/24 at 16:37; Status DC Potassium Chloride 100 ml @ 100 mls/hr AD PRN IV; Start 03/17/24 at 20:30; Stop 03/22/24 at 16:37; Status DC Potassium Chloride 10 meq AD PRN PO; Start 03/17/24 at 20:30; Stop 03/22/24 at 16:37; Status DC Potassium Chloride 10 meq AD PRN PO Last administered on 03/18/24at 06:42; Start 03/17/24 at 20:30; Stop 03/18/24 at 11:17; Status DC Magnesium Sulfate 50 ml @ 0 mls/hr PROTOCOL PRN IV Last administered on 03/19/24at 09:50; Start 03/17/24 at 20:30; Stop 03/19/24 at 19:09; Status DC Ceftriaxone Sodium 1 gm Q24H IVPB Last administered on 03/21/24at 20:04; Start 03/18/24 at 20:30; Stop 03/22/24 at 16:37; Status DC Vancomycin HCl 250 ml @ 125 mls/hr Q24H IV Last administered on 03/19/24at 21:17; Start 03/18/24 at 21:00; Stop 03/20/24 at 20:56; Status DC Vancomycin HCl 1 each AD IV; Start 03/17/24 at 21:00; Stop 03/22/24 at 16:37; Status DC Amlodipine Besylate 5 mg DAILY PO Last administered on 03/22/24at 07:58; Start 03/18/24 at 11:30; Stop 03/22/24 at 16:37; Status DC Hydralazine HCl 5 mg Q6H PRN IV; Start 03/18/24 at 11:30; Stop 03/22/24 at 16:37; Status DC Potassium Chloride 10 meq AD PRN PO Last administered on 03/19/24at 09:50; Start 03/18/24 at 11:30; Stop 03/22/24 at 16:37; Status DC Atorvastatin Calcium 40 mg HS PO Last administered on 03/21/24at 20:03; Start 03/18/24 at 21:00; Stop 03/22/24 at 16:37; Status DC Losartan Potassium 25 mg DAILY PO Last administered on 03/20/24at 08:33; Start 03/18/24 at 12:00; Stop 03/20/24 at 12:00; Status DC Memantine 5 mg BID PO Last administered on 03/22/24at 07:58; Start 03/18/24 at 21:00; Stop 03/22/24 at 16:37; Status DC Glipizide 10 mg [id number] PO Last administered on 03/20/24at 08:33; Start 03/19/24 at 08:00; Stop 03/21/24 at 06:56; Status DC Insulin Glargine 10 units HS SQ Last administered on 03/18/24at 21:06; Start 03/18/24 at 21:00; Stop 03/19/24 at 07:00; Status DC Magnesium Sulfate 50 ml @ 0 mls/hr PROTOCOL IV; Start 03/18/24 at 12:00; Stop 03/18/24 at 11:50; Status DC Mupirocin 1 APPL ONCE TP Last administered on 03/19/24at 17:52; Start 03/18/24 at 19:00; Stop 03/19/24 at 19:09; Status DC Insulin Human Regular INSULIN SLIDING SCAL... ACHS SQ Last administered on 03/22/24at 06:22; Start 03/18/24 at 21:00; Stop 03/22/24 at 16:37; Status DC Insulin Glargine 20 units DAILY SQ Last administered on 03/20/24at 08:32; Start 03/19/24 at 09:00; Stop 03/21/24 at 06:56; Status DC Insulin Human Regular 5 unit TIDAC SQ Last administered on 03/20/24at 06:31; Start 03/19/24 at 07:30; Stop 03/20/24 at 06:33; Status DC Magnesium Sulfate 50 ml @ 0 mls/hr PROTOCOL IV Last administered on 03/21/24at 05:16; Start 03/19/24 at 12:00; Stop 03/21/24 at 11:52; Status DC Insulin Human Regular 8 unit TIDAC SQ Last administered on 03/20/24at 16:39; Start 03/20/24 at 07:30; Stop 03/20/24 at 22:56; Status DC Losartan Potassium 25 mg BID PO Last administered on 03/22/24at 07:58; Start 03/20/24 at 12:00; Stop 03/22/24 at 16:37; Status DC Vancomycin HCl 750 mg Q12H IVPB Last administered on 03/22/24at 10:32; Start 03/20/24 at 21:00; Stop 03/22/24 at 16:37; Status DC Insulin Human Regular 10 unit TIDAC SQ Last administered on 03/22/24at 06:33; Start 03/21/24 at 07:30; Stop 03/22/24 at 07:11; Status DC Insulin Glargine 30 units DAILY SQ Last administered on 03/22/24at 08:03; Start 03/21/24 at 09:00; Stop 03/22/24 at 16:37; Status DC Magnesium Sulfate 50 ml @ 0 mls/hr PROTOCOL IV Last administered on 03/22/24at 05:19; Start 03/21/24 at 12:00; Stop 03/22/24 at 15:23; Status DC Insulin Human Regular 12 unit TIDAC SQ Last administered on 03/22/24at 12:22; Start 03/22/24 at 07:30; Stop 03/22/24 at 16:37; Status DC Magnesium Sulfate 50 ml @ 0 mls/hr PROTOCOL IV; Start 03/22/24 at 12:30; Stop 03/22/24 at 12:17; Status DC Magnesium Sulfate 50 ml @ 0 mls/hr PROTOCOL IV; Start 03/22/24 at 15:30; Stop 03/22/24 at 15:42; Status DC Magnesium Oxide 400 mg ONCE ONCE PO Last administered on 03/22/24at 15:58; Start 03/22/24 at 16:00; Stop 03/22/24 at 16:01; Status DC MILY WATSON MD Mar 22, 2024 21:22
== END 2024-03-22 16:30 | disposition home or self-care (01) | DRG 603 ==
LOC: EDH 16:27 → EDHIP 20:16 → 3BH 21:10
PROVIDERS: ADMIT Internal Medicine; ATTEND Internal Medicine
DX: L03.116 Cellulitis of left lower limb (principal); E44.0 Moderate protein-calorie malnutrition; Z68.1 Body mass index [BMI] 19.9 or less, adult; E11.65 Type 2 diabetes mellitus with hyperglycemia; E78.5 Hyperlipidemia, unspecified; L97.529 Non-pressure chronic ulcer of other part of left foot with unspecified severity; E11.51 Type 2 diabetes mellitus with diabetic peripheral angiopathy without gangrene; L89.520 Pressure ulcer of left ankle, unstageable; E11.621 Type 2 diabetes mellitus with foot ulcer; E78.00 Pure hypercholesterolemia, unspecified; E83.42 Hypomagnesemia; E87.6 Hypokalemia; F03.90 Unspecified dementia, unspecified severity, without behavioral disturbance, psychotic disturbance, mood disturbance, and anxiety; I35.0 Nonrheumatic aortic (valve) stenosis; S91.002A Unspecified open wound, left ankle, initial encounter; W18.39XA Other fall on same level, initial encounter; Z79.4 Long term (current) use of insulin; Z79.899 Other long term (current) drug therapy; Y93.89 Activity, other specified; Y92.89 Other specified places as the place of occurrence of the external cause; Y99.8 Other external cause status
CPT/HCPCS: 36415; 71045; 73610; 73630; 80048; 80053; 80061; 80202; 81001; 82150; 82550; 82948; 83036; 83605; 83690; 83735; 84484; 85025; 85027; 85651; 86140; 87040; 93005; 96361; 96374; 96375; 99285; G0378; J0696; J1650; J1815; J3370; J3475